=== PATIENT | female | born 1960 | race Caucasian/White ===

== ENCOUNTER 2020-08-29 08:47 | Outpatient (RCR) | payer OTHER, SELFPAY ==
--- NOTE | 2020-08-29 10:00 | PTOPEVAL ---
Thank you for referring Keiko Hsu to [facility].? The patient is scheduled to be seen for therapy? ____x/week for ___ weeks. Please review, sign, date and return this plan of care DOMINIQUE. I agree with and certify that the following plan of care is medically necessary. Referring Physician Date Admitting Provider: Attending Provider: ANGY PAN Referring Provider: JacquelinePT Outpatient Evaluation Start: 08/29/20 08:46 Freq: Status: Active Protocol: Document 08/29/20 08:47 ACR (Rec: 08/29/20 09:58 ACR [id number]) Therapy Assessment Status Assessment Status Assessment Status Evaluation Evaluation Information Problem Diagnosis R TKA Onset 08/22/20 Additional Evaluation Detail LEFS= 91% functionally disabled Subjective Information Patient states she underwent a Query Text:As Reported By Patient/ R TKA and everything went Family fine, but she was sick for 4 days. She is feeling better now and does not think it is from her hydrocodone. She states she did cortisone shots for 2 years that started to become less effective so she got the knee replacement. She states that getting on and off the toilet or in a chair is difficult. She has difficulty with walking/standing for prolonged periods of time. She states that it is waking her up at night. Patient is not driving at this time. Patient states she has been doing ankle pumps and walking at home. Patient states she is getting her other knee replaced in 6 weeks. Patient states her goal for therapy is to be pain free in 2 weeks. 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
--- NOTE | 2020-09-06 10:31 | PCPTNOTE ---
On 09/06/20, the student, [Vanda Maria, SPT], provided care and completed TextHub documentation on this patient. I have reviewed the student's documentation and agree with the findings.
--- NOTE | 2020-10-16 12:52 | PTOPEVAL ---
Thank you for referring Keiko Hsu to [facility].? The patient is scheduled to be seen for therapy? ____x/week for ___ weeks. Please review, sign, date and return this plan of care DOMINIQUE. I agree with and certify that the following plan of care is medically necessary. Referring Physician Date Admitting Provider: Attending Provider: ANGY PAN Referring Provider: JacquelinePT Outpatient Evaluation Start: 08/29/20 08:46 Freq: Status: Active Protocol: Document 10/16/20 09:03 ACR (Rec: 10/16/20 09:59 [facility] [id number]) Therapy Assessment Status Assessment Status Assessment Status Evaluation Evaluation Information Problem Diagnosis L TKA Onset 10/10/20 Subjective Information Patient states that she got Query Text:As Reported By Patient/ her L TKA on 10/10/20 and Family things went well. She states that this one was a bit more sore than the last one. She states she feels pretty tired, but it has only been a week. She states she has been doing her exercises, but the heel slides are the worst. Pain Assessment Timing of Pain Assessment Timing of Pain Assessment Assessment Pain Scale Pain Scale Used Numeric (1 - 10) Self Report Pain Assessment Left Knee(s) Reported Pain Level 4 Greatest Pain Intensity 6 Pain Score Pain Score 4: Self Report Interventions Used Interventions Used By Clinicians Activity or ADL's,Exercise Lower Extremity Range of Motion Knee Range of Motion Right Knee Flexion Range of Motion - Active 121 Knee Extension Range of Motion - Active -3 Query Text: Left Knee Flexion Range of Motion - Active 88 Knee Extension Range of Motion - Active -6 Query Text: Lower Extremity Muscle Strength Testing Knee Strength Right Knee Flexion Strength 4+ Good + Knee Extension Strength 4+ Good + Left Knee Flexion Strength 3+ Fair + Knee Extension Strength 3+ Fair + Palpation Assessment Palpation Palpation Patient has a surgical bandage along the incision of the L knee with excessive bruising along the thigh and down into the knee. Medial knee joint line circumference: L- 44 cm, R- 39 cm Gait Assessment Gait Assessment Additional Ambulation Comments Patient ambulates into the clinic with FWW, s
--- NOTE | 2020-11-27 12:00 | PTOPEVAL ---
Thank you for referring Keiko Hsu to [facility].? The patient is scheduled to be seen for therapy? ____x/week for ___ weeks. Please review, sign, date and return this plan of care DOMINIQUE. I agree with and certify that the following plan of care is medically necessary. 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 She states that she feels like it is overextending at times and there is a slight pain, but otherwise has no pain. Patient reports that at time she feels that her hips are a bit off when walking long distances. Pain Assessment Timing of Pain Assessment Timing of Pain Assessment Pre-Treatment Pain Scale Pain Scale Used Numeric (1 - 10) Self Report Pain Assessment Left Knee(s) Reported Pain Level 0 Greatest Pain Intensity 1 Pain Score Pain Score 0: Self Report Interventions Used Interventions Used By Clinicians Activity or ADL's,Exercise Lower Extremity Range of Motion Knee Range of Motion Left Knee Flexion Range of Motion - Active 128 Knee Extension Range of Motion - Active -1 Query Text: Lower Extremity Muscle Strength Testing Knee Strength Right Knee Flexion Strength 5 Normal Knee Extension Strength 5 Normal Left Knee Flexion Strength 5 Normal Knee Extension Strength 5 Normal Palpation Assessment Palpation Palpation medial joint line swelling: R- 39 cm, L - 40cm Gait Assessment Gait Assessment Additional Ambulation Comments Patient ambulates into the clinic with proper gait mechanics with little to no knee flexion with stance phase , no antalgia, and only a slight B hip drop. General Ex
== END 2020-11-27 14:33 | disposition home or self-care (01) ==
LOC: CHSPT 08:47
DX: Z47.1 Aftercare following joint replacement surgery (principal); Z96.651 Presence of right artificial knee joint
CPT/HCPCS: 97016; 97110; 97161; 97164; 97530

== ENCOUNTER 2024-05-28 10:57 | Outpatient (CLI) | payer OTHER, SELFPAY ==
[2024-05-28 11:22] LABS: Basophils Absolute Auto 0.04 K/mm3 (0.00-0.10); Basophils Percent Auto 0.5 % (0.0-1.0); Eosinophils Absolute Auto 0.19 K/mm3 (0.02-0.50); Eosinophils Percent Auto 2.5 % (1.0-6.0); Hematocrit 41.2 % (35.0-49.0); Hemoglobin 13.5 g/dL (12.0-15.0); Immature Granulocyte Absolute 0.01 K/mm3 (0.00-0.00); Immature Granulocyte Percent A 0.1 % (0.0-0.0); Lymphocytes Absolute Auto 1.52 K/mm3 (1.10-4.50); Mean Corpuscular HGB Conc 32.8 g/dL (32-36); Mean Corpuscular Hemoglobin 30.2 pg (27.0-31.0); Mean Corpuscular Volume 92.2 fL (78.0-102.0); Mean Platelet Volume 9.7 fl (9.2-11.8); Monocytes Absolute Auto 0.66 K/mm3 (0.10-0.90); Monocytes Percent Auto 8.7 % (2.0-11.0); Neutrophils Absolute Auto 5.18 K/mm3 (1.70-7.20); Neutrophils Percent Auto 68.2 % (50.0-70.0); Platelet Count Result 270 K/mm3 (150-420); Red Blood Count 4.47 M/mm3 (4.20-5.40); Red Cell Distribution Width 12.8 % (11.6-14.4); White Blood Count 7.6 K/mm3 (4.8-10.8)
--- OUTSIDE RECORDS SUMMARY | 2024-05-28 12:00 | XMS_ITS ---
Author Organization Unknown Address [address] [place] [phone] Phone Care Team Providers Care Turbine Inspector Name Role Phone PREMA MARSHALL Attending Unavailable Immunization Immunization Date Status Additional Notes Code Code System Influenza, MDCK, quadrivalen t, PF 12/08/2019 Completed 171 CVX COVID-19, mRNA, LNP-S, PF, 1 00 mcg/0.5mL dose or 50 mcg/0.25mL dose 06/13/2020 Completed 207 CVX COVID-19, mRNA, LNP-S, PF, 1 00 mcg/0.5mL dose or 50 mcg/0.25mL dose 07/11/2020 Completed 207 CVX Social History Type Status Start Date End Date Code Code Syst em Sex Female Hospital Discharge Instructions Should you have any questions prior to discharge, please contact a member of your healthcare team. If you have left the hospital and have any questions, please contact your primary care physician. Reason For Referral No Data Found Plan of Treatment No Data Found Encounters Encounter Diagnosis Start Date Code Code Sys tem Dyspnea 08/01/2023 [id number] SNOMED-CT Personal Care Team Section Performer Name Performer Role Active Date Inactive ROLANDO Reyes PCP - Primary care physician 2023-07-15
--- OUTSIDE RECORDS SUMMARY | 2024-05-28 12:00 | XMS_ITS | Clinical Summary ---
Author Organization [facility] Medical Office Building B Address [address] [place] [address] Care Team Providers Care Cement Loader Name Role Phone Kale Dumas Primary Care Provider [phone] Allergies Active Allergy Reactions Criticality Noted Date Comments Metoclopramide Other (See comments),Hives,Nausea only High 08/14/2020 Reaction: FLUSHING SKIN, , Tamsulosin Hives,Nausea only High 07/30/2018 Medications multivit-min/fe rrous fumarate (MULTI VITAMIN ORAL)Indication s:Thrive Vitamin - Take 1 tablet daily. Take by mouth Active naproxen (NAPROSYN) 500 mg tablet Take 1 tablet (500 mg total) by mouth 2 (two) times a day as needed for pain 60 tablet 5 12/02/2019 Active celecoxib (CeleBREX) 200 mg capsule Take 1 capsule (200 mg total) by mouth 2 (two) times a day 84 capsule 08/18/2020 Active aspirin (Ecotrin) 325 mg enteric coated tablet Take 1 tablet (325 mg total) by mouth daily 42 tablet 08/18/2020 Active scopolamine 1 mg over 3 days patch [address] 1 patch on the skin every third day 4 patch 2 08/25/2020 Active traMADoL (ULTRAM) 50 mg tablet Take 1 tablets every 6 hours as needed for pain. 30 tablet 08/25/2020 Active ascorbic acid (ascorbic acid) 500 mg tablet,chewable Take 500 mg by mouth daily 10/10/2020 Active ascorbic acid 500 mg tablet Take 500 mg by mouth daily 10/11/2020 Active cyclobenzaprine (FLEXERIL) 10 mg tablet Take by mouth 3 (three) times a day as needed 10/23/2020 Active Active Problems Problem Noted Date Diagnosed Date Bilateral primary osteoarthritis of knee 020 Primary osteoarthritis of both knees 07/29/2018 Kidney stone 07/03/2018 Overview (07/03/2018): Added automatically from request for surgery Surgical History Surgery Date Site/Laterality Comments APPENDECTOMY KNEE SURGERY Medical History Medical History Date Comments Osteoarthritis Kidney stone Family History Medical History Relation Name Comments No Known Problems Brother No Known Problems Daughter No Known Problems Father No Known Problems Mother No Known Problems Sister No Known Problems Son Relation Name Status Comments Brother Daughter Father Mother Sister Son Social History Tobacco Use Types Packs/Day Years Used Date Smoking Tobacco: Every Day Cigarettes 0.5 20 Smokeless Tobacco: Never Tobacco Cessation:Ready to Q uit: Yes; Counseling Given: Yes Alcohol Use Standard Drinks/Week Comments Yes 0 (1 standard drink = 0.6 oz pur e alcohol) occassional Comments No Sex and Gender Information Value Date Recorded Sex Assigned at Not on file Legal Sex Female 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 Gender Identity Not on file Sexual Orientation Not on file Obstetrics History Last Filed Vital Signs Vital Sign Reading Time Taken Comments Blood Pressure 119/86 11/28/2020 10:50 AM CDT Pulse 86 11/28/2020 10:50 AM CDT Temperature 36.3 C (97.3 F) 06/08/2020 9:20 AM CDT Respiratory Rate 14 07/07/2018 4:40 PM CDT Oxygen Saturation 100% 07/07/2018 4:40 PM CDT Inhaled Oxygen Concentration - - Weight 79.4 kg (175 lb) 11/28/2020 10:50 AM CDT Height 162.6 cm (5' 4 ) 11/28/2020 10:50 AM CDT Body Mass Index 30.04 11/28/2020 10:50 AM CDT Plan of Treatment Not on file Insurance [facility] CHOICE PLUS [facility] CHOICE PLUS [employer] COMPENSATION GENERIC Care Teams Cement Loader Relationship Specialty Start Date End Date Kale Dumas PA [address] [place] [address] PCP - General 07/17/06
--- OUTSIDE RECORDS SUMMARY | 2024-05-28 12:00 | XMS_ITS | Encounter Summary ---
Author Organization [facility] Address [address] [place] [address] Phone Care Team Providers Care Director Of Online Education Name Role Phone Kale Dumas Primary Care Provider [phone] Encounter Details Date Type Department Care Team (Late st Contact Info) Description 10/04/2020 Transcribe Orders [facility] Preop/Pacu II [address] [place] [id number] Herbert Stewart MD [address] [place] [address], [address] [place] [address] Pre-op testing (Primary Dx) Social History Tobacco Use Types Packs/Day Years Used Date Smoking Tobacco: Former Cigarettes 0.5 31.8 1 989 - 01/2020 Smokeless Tobacco: Never Alcohol Use Standard Drinks/Week Comments Not Currently 0 (1 standard drink = 0.6 oz pur e alcohol) Comments Unknown Sex and Gender Information Value Date Recorded Sex Assigned at Not on file Legal Sex Female 11:12 PM CDT Gender Identity Not on file Sexual Orientation Not on file COVID-19 Exposure Response Date Recorded In the last month, have you been in contact with someone who was confirmed or suspected to have Coronavirus / COVID-19? No / Unsure 10/07/2020 7:54 AM CDT documented as of this encounter Plan of Treatment Not on file documented as of this encounter Results * TYPE & SCREEN (CROSSMATCH CONVERTIBLE) (10/07/2020 8:22 AM CDT) ABO TYPING A 10/07/2020 10:[address] [facility] RH Positive 10/07/2020 10:[address] [facility] ABSC Negative 10/07/2020 10:[address] [facility] Blood Venipuncture / Unknown 10/07/2020 8:22 AM CDT 10/07/2020 8:35 AM CDT us Herbert Stewart MD BLOOD BANK ORDERABLES Edited R esult - Final [facility] [address] [place] [address] documented in this encounter Visit Diagnoses Diagnosis Pre-op testing- Primary Preoperative examination, unspecified documented in this encounter Care Teams Director Of Online Education Relationship Specialty Start Date End Date Kale Dumas, PAC [address] [place] [id number] PCP - General Physician Cmm Technician 04/08/18 documented as of this encounter
--- OUTSIDE RECORDS SUMMARY | 2024-05-28 12:00 | XMS_ITS | Encounter Summary ---
Author Organization [facility] Address [address] [place] [address] Phone Care Team Providers Care Photo Print Specialist Name Role Phone Kale Dumas Primary Care Provider [phone] Encounter Details Date Type Department Care Team (Late st Contact Info) Description 08/08/2020 Transcribe Orders [facility] Admitting [address] [place] [address] Herbert Stewart MD [address] [facility], [address] [place] [address] Pre-op testing (Primary Dx) Social History Tobacco Use Types Packs/Day Years Used Date Smoking Tobacco: Never Assessed Comments Unknown Sex and Gender Information Value Date Recorded Sex Assigned at Not on file Legal Sex Female 11:12 PM CDT Gender Identity Not on file Sexual Orientation Not on file COVID-19 Exposure Response Date Recorded In the last month, have you been in contact with someone who was confirmed or suspected to have Coronavirus / COVID-19? No / Unsure 08/08/2020 11:11 AM CDT documented as of this encounter Plan of Treatment Not on file documented as of this encounter Visit Diagnoses Diagnosis Pre-op testing- Primary Preoperative examination, unspecified documented in this encounter Care Teams Photo Print Specialist Relationship Specialty Start Date End Date Kale Dumas PAC [address] [place] [address] PCP - General Physician Hydroelectric Powerplant Supervisor 04/08/18 documented as of this encounter
--- OUTSIDE RECORDS SUMMARY | 2024-05-28 12:00 | XMS_ITS | Referral Summary ---
Author Organization [facility] Medical Office Building B Address [address] [place] [address] Care Team Providers Care Adjunct Professor Of [employer] 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 History Relationship Specialty Start Date End Date Kale Dumas PA [address] [place] [address] [facility] - General 07/17/06
--- OUTSIDE RECORDS SUMMARY | 2024-05-28 12:00 | XMS_ITS | Clinical Summary ---
Author Organization [facility] Address [address] [place] [address] Phone Care Team Providers Care Ibm Bpm Architect Name Role Phone Kale Dumas Primary Care Provider [phone] Allergies Active Allergy Reactions Criticality Noted Date Comments Metoclopramide Hives,Nausea High 08/14/2020 Tamsulosin Hives,Nausea High 08/14/2020 Medications ELDERBERRY PO Take 50 mg by mouth daily. Active aspirin 325 MG Tablet Take 1 Tablet by mouth daily. 42 Tablet 1 Active ferrous sulfate 325 (65 Fe) MG Tablet Take 1 Tablet by mouth daily. 30 Tablet 1 Active ascorbic acid 500 MG Tablet Take 1 Tablet by mouth daily. 30 Tablet 1 Active ondansetron (ZOFRAN-ODT) 4 MG TABLET DISPERSIBLE Take 1 Tablet by mouth every 8 hours as needed for Nausea - 1st line. 20 Tablet 1 Active oxyCODONE-acetamino phen (PERCOCET) 5-325 MG TabletIndications:P rimary osteoarthritis of left knee Take 1-2 Tablets by mouth every 4 hours as needed for Moderate or more severe pain. 60 Tablet 1 Active celecoxib (CeleBREX) 200 MG Capsule Take 1 Capsule by mouth 2 times daily. 84 Capsule 1 Active senna (senna) 8.6 MG Tablet Take 2 Tablets by mouth daily. 30 Tablet 1 Active Polyethylene Glycol 3350 (MIRALAX PO) Take 17 g by mouth as needed. Active Active Problems No known active problems Immunizations Immunization Administration Dates Next Due Covid-19, Mrna, Lnp-s, PF, 1 00 mcg/0.5 mL Dose (Moderna) 07/11/2020,06/13/2020 Family History Medical History Relation Name Comments Cancer Father SKIN Heart Disease Father Hypertension Father Arthritis Mother Hypertension Mother Relation Name Status Comments Father Alive Mother Alive Social History Tobacco Use Types Packs/Day Years Used Date Smoking Tobacco: Former Cigarettes 0.5 31.8 1 98 - 01/2020 Smokeless Tobacco: Never Alcohol Use [...] Sign Reading Time Taken Comments Blood Pressure 138/63 10/10/2020 1:00 PM CDT Pulse 78 10/10/2020 1:00 PM CDT Temperature 37 C (98.6 F) 10/10/2020 1:00 PM CDT Respiratory Rate 16 10/10/2020 1:00 PM CDT Oxygen Saturation 97% 10/10/2020 1:00 PM CDT Inhaled Oxygen Concentration - - Weight 78 kg (172 lb) 10/10/2020 5:58 AM CDT Height 162.6 cm (5' 4 ) 10/10/2020 5:58 AM CDT Body Mass Index 29.52 10/10/2020 5:58 AM CDT Plan of Treatment Health Maintenance Due Date Last Done Comments Hepatitis C Virus (HCV) Screening 1962 Mammogram 1962 TdaP Immunization 1962 Pap Smear 1983 Cervical Cancer Screening (CCS) 1992 HPV/Cotest 1992 Colonoscopy 2007 Colorectal Cancer Screening 2007 Cologuard 2012 Immunochemical Fecal Occult Blood 2012 Pneumococcal Immunization (5 0+ years) (1 of 1 - PCV) 2012 Zoster Immunization (1 of 2) 2012 Influenza Immunization (#1) 2023 12/08/2019 SARS-COV-2 Immunization (3 - 2023- season) 2023 07/11/2020, 06/13/2020 Respiratory Syncytial Virus (RSV) Immunization (Adult) (1 - 1-dose 75+ series) 2037 Hepatitis B Immunization Aged Out No longer eligible based on patient's age to complete this topic Meningococcal Immunization (ACWY) Aged Out No longer eligible b ased on patient's age to complete this topic Rotavirus Immunization Aged Out No lo nger eligible based on patient's age to complete this topic Medical Devices Implanted Type Area Front End Developer Designer Device Identifier Shelf Expiration Date Model / Serial / Lot Cement Bone Smartset Gentamicin High Viscosity 40gm - [id number] Implanted:Qty: 2 on 08/22/2020 [facility] IMPLANT Right: Knee [employer] 04/02/2021 [id number] / [id number] / [id number] Component Fem 5 Narrow Knee Right Post Stab Cmnt Attune - [id number] Implanted:Qty: 1 on 08/22/2020 by Herbert [facility] at [facility] IMPLANT Right: Knee [employer] 07/31/2030 [id number] / [id number] / [id number] Insert Tib 5 8mm Knee Post Stab Fix Bearing Attune - [id number] Implanted:Qty: 1 on 08/22/2020 by Herbert [facility] at [facility] IMPLANT Right: Knee [employer] 12/01/2023 [id number] / [id number] / [id number] Cement Bone Smartset Gentamicin High Viscosity 40gm - [id number] Implanted:Qty: 1 on 10/10/2020 by Herbert Stewart MD at [facility] IMPLANT Left: Knee [employer] 04/02/2021 [id number] / [id number] / [id number] Cement Bone Smartset Gentamicin High Viscosity 40gm - [id number] Implanted:Qty: 1 on 10/10/2020 by Herbert Stewart MD at [facility] IMPLANT Left: Knee [employer] 04/02/2022 [id number] / [id number] / [id number] Component Fem 4 Knee Left Post Stab Cmnt Attune - [id number] Implanted:Qty: 1 on 10/10/2020 by Herbert Stewart MD at [facility] IMPLANT Left: Knee [employer] 08/30/2030 [id number] / [id number] / [id number] Insert Tib 4 7mm Knee Post Stab Fix Bearing Attune - [id number] Implanted:Qty: 1 on 10/10/2020 by Herbert Stewart MD at [facility] IMPLANT Left: Knee [employer] 04/02/2025 [id number] / [id number] / [id number] Tibial Base Fixed Bearing Implanted:Qty: 1 on 08/22/2020 by Herbert Stewart MD at [facility] Right: Knee [employer] 05/31/2030 [id number] / [id number] / [id number] Depuy Attune Knee System Tibial Base Fixed Bearing Implanted:Qty: 1 on 10/10/2020 by Herbert Stewart MD at [facility] Left: Knee [employer] 05/31/2030 [id number] / [id number] / [id number] Insurance [employer] Care Teams Ibm Bpm Architect Relationship Specialty Start Date End Date Kale Dumas PAC [address] [place] [id number] PCP - General Physician Top Collar Maker 04/08/18
--- OUTSIDE RECORDS SUMMARY | 2024-05-28 12:00 | XMS_ITS | Clinical Summary ---
Author Organization [facility] Address [facility] [place] [address] Care Team Providers Care Gericare Aide Name Role Phone Kale Dumas Primary Care Provider [phone] Allergies No known active allergies Medications omeprazole (PRILOSEC) 20 MG capsule Take 1 capsule (20 mg total) by mouth daily. Active Social History Tobacco Use Types Packs/Day Years Used Date Smoking Tobacco: Former Cigarettes Tobacco Cessation:Counseling Given: No Alcohol Use Standard Drinks/Week Comments Not Currently 0 (1 standard drink = 0.6 oz pur e alcohol) Comments Unknown Sex and Gender Information Value Date Recorded Sex Assigned at Not on file Legal Sex Female 10:43 AM CDT Gender Identity Not on file Sexual Orientation Not on file Last Filed Vital Signs Vital Sign Reading Time Taken Comments Blood Pressure 122/62 06/26/2023 2:00 PM CDT Pulse 58 06/26/2023 2:00 PM CDT Temperature 36.8 C (98.2 F) 06/26/2023 10:54 AM CDT Respiratory Rate 15 06/26/2023 2:00 PM CDT Oxygen Saturation 99% 06/26/2023 2:00 PM CDT Inhaled Oxygen Concentration - - Weight 84.4 kg (186 lb) 06/26/2023 10:54 AM CDT Height 162.6 cm (5' 4 ) 06/26/2023 10:54 AM CDT Body Mass Index 31.93 06/26/2023 10:54 AM CDT Plan of Treatment Health Maintenance Due Date Last Done Comments Cervical Cancer Screening Pedro awad Smear (Age 30 to 64) Every 3 Years 1962 Colorectal Cancer Screening Colonoscopy (10 Years) 1962 Annual Physical 1965 Hepatitis C 1980 DTaP, Tdap and Td Vaccines ( 1 - Tdap) 1981 Cervical Cancer Screening Pa p with HPV Testing (Age 30 to 64) Every 5 Years 1992 Cervical Cancer Screening wi th HPV 1992 Mammogram Screening 2002 Zoster Vaccines (1 of 2) 2012 COVID-19 Vaccine (3 - 2023-2 5 season) 2023 07/11/2020, 06/13/2020 Influenza Adult (#1) 2023 12/08/2019 RSV Immunization or 60+ Years (1 - 1-dose 75+ series) 2037 Meningococcal B Vaccine Aged Out No l onger eligible based on patient's age to complete this topic Meningococcal Vaccine Aged Out No feliz sis eligible based on patient's age to complete this topic Pneumococcal Vaccine: Pediatrics (0 to 5 Years) and At-Risk Patients (6 to 64 Years) Aged Out No longer eligible b ased on patient's age to complete this topic RSV Immunizations Under 20 Months Aged Out No longer eligible b ased on patient's age to complete this topic Insurance [employer] Care Teams Gericare Aide Relationship Specialty Start Date End Date Kale Dumas PA [address] [place] [address] PCP - General PHYSICIAN LIBERAL ARTS DEAN 06/26/23
--- OUTSIDE RECORDS SUMMARY | 2024-05-28 12:01 | XMS_ITS ---
Author Organization Unknown Address [address] [place] [address] [phone] Phone Care Team Providers Care Sound Recording Technician Name Role Phone IVAN CHANEL TREATING ENGINEER Attending Unavailable PREMA MARSHALL Primary Unavailable Immunization Immunization Date Status Additional Notes Code Code System Influenza, MDCK, quadrivalen t, PF 12/08/2019 Completed 171 CVX COVID-19, mRNA, LNP-S, PF, 1 00 mcg/0.5mL dose or 50 mcg/0.25mL dose 06/13/2020 Completed 207 CVX COVID-19, mRNA, LNP-S, PF, 1 00 mcg/0.5mL dose or 50 mcg/0.25mL dose 07/11/2020 Completed 207 CVX Results DIG 3D CORBIN SCREENING BILATER AL - Completed: 12/26/2023 11:41 LOINC: See Scanned Image Attachment for Report Dictated By: Trans Initials: BG Trans Date: 12/30/23 14:36 <<REPDIST>> Social History Type Status Start Date End [...] Diagnosis Start Date Code Code Sys tem Screening mammography 12/26/2023 [id number] SNOMED -CT Personal Care Team Section Performer Name Performer Role Active Date Inactive ROLANDO Reyes PCP - Primary care physician 2023-07-15 Imaging Narrative Notes [facility] 12/30/2023 14:[address] [address] RADIOLOGY REPORT Patient Number: [id number] Patient Name: KAMILLA JAIN Type: O/P MR Number: [id number] : 1960 Age: 63 Sex: F Room #: Admit Date: 12/26/23 Discharge Date 12/26/23 Ordering Physician: IVAN CHANEL NP Family Physician: PREMA THOMAS Second Physician: X-Ray Number : [id number] DIG 3D CORBIN SCREENING BILATERA [id number] COMPLETE:12/26/23 11:41 KSE [id number] (REASONS-DIG 3D CORBIN SCREENING BILATERAL: SCREENING See Scanned Image Attachment for Report Dictated By: Wenceslao Initials: Trans Date: 12/30/23 14:36 <<REPDIST>>
[2024-05-28 14:41] LABS: Alanine Aminotransferase 53 U/L (14-59); Albumin Level 4.1 g/dL (3.4-5.0); Alkaline Phosphatase 89 U/L (46-116); Anion Gap 9 mmol/L (4-12); Aspartate Amino Transferase 26 U/L (15-37); Bilirubin,Total 0.4 mg/dL (0.00-1.00); Blood Urea Nitrogen 14 mg/dL (7-18); Calcium 9.5 mg/dL (8.5-10.1); Carbon Dioxide 29 mmol/L (21-32); Chloride 102 mmol/L (98-108); Cholesterol 238 mg/dL (0-200); Estimated Glomerular Filt Rate > 60; Glucose 76 mg/dL (70-99); HDL Direct 56 mg/dL (40-60); LDL Cholesterol Calculated 149 mg/dL (<130); Osmolality Calculated 289 mOsm/kg (285-295); Potassium 4.6 mmol/L (3.5-5.1); Sodium 140 mmol/L (136-145); Total Protein 7.8 g/dL (6.4-8.2); Triglycerides 164 mg/dL (0-150)
[2024-05-28 14:42] LABS: Thyroid Stimulating Hormone Reflex 1.41 u/IU/mL (0.36-3.74)
== END 2024-05-28 10:58 | disposition home or self-care (01) ==
LOC: CHSLAB 10:58
PROVIDERS: PCP Family Medicine; Visit Provider Family Medicine
DX: Z00.00 Encounter for general adult medical examination without abnormal findings (principal); E03.9 Hypothyroidism, unspecified
CPT/HCPCS: 36415; 80053; 80061; 84443; 85025

== ENCOUNTER 2024-06-11 12:43 | Outpatient (CLI) | payer OTHER, SELFPAY ==
--- NOTE | ~2024-06-11 | CT_ITS ---
CT Scan of the Chest without Contrast: Clinical Indication: Lung cancer screening, nicotine dependence Technique: Contiguous sections were acquired throughout the chest without intravenous contrast. Dose reduction technique was used on this scan by utilizing automated exposure control and iterative recon struction technique. The dose-length product (DLP) was 141.61 mGy-cm. Findings: There is no evidence of any significant mediastinal, hilar or axillary lymphadenopathy. The mediastin al soft tissues appear normal. There is no evidence of pleural or pericardial effusion. The lungs are clear. Probable minimal lingular atelectasis. Images through the upper abdomen reveal no abnormalities. Impression: Lung RADS 1: Negative. 12 month follow-up screening CT advised. Reviewed, dictated and finalized at location . Impression: Lung RADS 1: Negative. 12 month follow-up screening CT advised.
--- OUTSIDE RECORDS SUMMARY | 2024-06-11 12:47 | XMS_ITS | Data Portability ---
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 Plan of Treatment Reminders Order Date Submit Date Provider Last Modified By Organization Details Last Modified Time Details Appointments None recorded. Lab cytology report, thin prep, smear or scraping, cervical or vaginal 2023 024 [facility] [facility], [address] [facility], [facility], [place], [address], 4 10:16:35 bacterial vaginosis panel, vaginal 2023 024 [facility], [address] [facility], [facility], [place], [address], 4 15:16:39 urinalysis , dipstick 2023 024 [email or web address] In-Office Order, Internal Use Only DO Not Attach Compendium DO Not Attach Compendium, Do Not Delete/merge, [id number] 11:03:59 culture, urine 2023 024 [facility] [address] [facility], [place], [address], 4 17:09:38 noninvasiv e colorectal cancer DNA + occult blood screening, QL, stool 2023 024 [facility] (Cologuard Orders Only), [address], [address], [place], [address], 4 10:20:36 urinalysis , dipstick 2018 019 [email or web address] In-Office Order, Internal Use Only DO Not Attach Compendium DO Not Attach Compendium, Do Not Delete/merge, [id number] 19:37:42 Referral None recorded. Procedures None recorded. Surgeries None recorded. Imaging MAMMO, screening, bilateral 2023 024 [facility] (Radiology), [address] [place], [address], 4 09:52:21 exercise stress test 2023 024 [facility] - Radiology Scheduling, [address] [place], [address], 4 10:01:02 Medication Orders Women's 50 Plus Multivitam in 400 mcg-500 mg calcium-20 mcg tablet [address] [facility]/Pharmacy #[id number], [address] [place], [address], 4 11:04:08 triamcinol one acetonide 0.1 % topical ointment [address] [facility]/Pharmacy #[id number], [address] [place], [address], 4 11:19:55 Patient TargetsNo targets recorded. Patient Instructions Encounter Date Encounter Id Patient Instructions Last Modified By Organization Details Last Modified Time 07/01/2018 [id number] blood in the urine: care instructions stephanieanney Not available 07/01/2018 18:49:38 back care and preventing injuries: care instructions [email or web address] Not available 07/01/2018 18:49:38 go to ER jnanney Not available 2018 18:49:38 08/08/2020 [id number] body mass index: care instructions jnanney Not available 08/08/2020 10:21:28 learning about healthy weight Not available 08/08/2020 10:21:27 07/03/2023 [id number] A healthy lifestyle: care instructions Not available 07/03/2023 15:46:26 08/21/2023 [id number] A healthy lifestyle: care instructions Not available 08/21/2023 16:12:55 10/27/2023 [id number] A healthy lifestyle: care instructions [email or web address] Not available 10/27/2023 11:03:57 Your women's health annual exam today was unremarkable. Continue to practice breast self awareness like we discussed. Come back to the office with any breast changes, nipple discharge, change to your menstrual cycle, or with complaints of unusual odorous discharge. Otherwise, come back in 1 year for your next well woman annual exam. Do NOT douche as it disturbs the natural balance of bacteria in the vagina and can cause infection. Avoid scented soaps or lotions. Use a basic unscented soap for only the outer skin around your vagina. Wear cotton underwear, avoid thongs, avoid spandex, leggings and wear panty liners daily. You can try probiotics. Use a condom with EVERY sexual encounter to minimize your risk for sexually transmitted infection and unplanned . 1. Start taking a multivitamin, calcium and vitamin D3 supplements daily to keep your bones healthy. 2. Exercise and keep a healthy diet to minimize risk for stroke, heart attack and osteoporosis. 3. Use a once a day vaginal moisturizer (like Replens) if you have bothersome dryness. If dryness continues to be a problem, make an appointment to see us to discuss other options. Keep taking your multivitamins. Your bones get weaker after menopause, and you need to take your calcium and vitamin D3, which are multivitamins, to make sure your bones stay strong. Regular exercise, like walking, is very good to keep bones healthy. Try exercising for 30 minutes 5 times a week. Try having 2-3 servings of low fat dairy every day. Lubrication can help make penetrative intercourse more comfortable. There are 3 types of lube: Water-based (examples are KY jelly, Astroglide): inexpensive, can buy over the counter, often gets sticky and needs to be reapplied. Oil-based (examples olive oil, coconut oil): inexpensive, can stain sheets, do not use with condoms. Silicone-based (examples Uber Lube, Pjur): more expensive, a little goes a long way, does not have scents or stain sheets. [email or web address] Not available 10/27/2023 10:07:14 Reason for Referral None Reported. Results Created Date Observation Date Name Description Value Unit Range Abnormal Flag Note LastModifiedBy Organization Detail LastModifiedTime 06/30/19 19 06/29/2018 urina lysis , dipst ick Leukocytes Trace Not Available In-Offi ce Order Internal Use Only DO Not Attach Compendium DO Not Attach Compendium, Do Not Delete/merge, 06/29/2018 15:11:52 06/30/19 19 06/29/2018 urina lysis , dipst ick Nitrite positi ve Not Available In-Office Order Internal Use Only DO Not Attach Compendium DO Not Attach Compendium, Do Not Delete/merge, 06/29/2018 15:11:52 06/30/19 19 06/29/2018 urina lysis , dipst ick Urobilinogen .2 Not Available In-Of fice Order Internal Use Only DO Not Attach Compendium DO Not Attach Compendium, Do Not Delete/merge, 06/29/2018 15:11:52 06/30/19 19 06/29/2018 urina lysis , dipst ick Protein Negati ve Not Available In-Office Order Internal Use Only DO Not Attach Compendium DO Not Attach Compendium, Do Not Delete/merge, 06/29/2018 15:11:52 06/30/1906/29/2018 urina lysis , dipst ick pH 5.0 Not Available In-Office Order Internal Use Only DO Not Attach Compendium DO Not Attach Compendium, Do Not Delete/merge, 06/29/2018 15:11:52 06/30/19 19 06/29/2018 urina lysis , dipst ick Blood Non-He molyze d: Trace Not Available In-Office Order Internal Use Only DO Not Attach Compendium DO Not Attach Compendium, Do Not Delete/merge, 06/29/2018 15:11:52 06/30/19 19 06/29/2018 urina lysis , dipst ick Specific [place] 1.005 Not Available In-Off ice Order Internal Use Only DO Not Attach Compendium DO Not Attach Compendium, Do Not Delete/merge, 06/29/2018 15:11:52 06/30/19 19 06/29/2018 urina lysis , dipst ick Ketone Negati ve Not Available In-Office Order Internal Use Only DO Not Attach Compendium DO Not Attach Compendium, Do Not Delete/merge, 06/29/2018 15:11:52 06/30/19 19 06/29/2018 urina lysis , dipst ick Bilirubin Negati ve Not Available In-Office Order Internal Use Only DO Not Attach Compendium DO Not Attach Compendium, Do Not Delete/merge, 06/29/2018 15:11:52 06/30/19 19 06/29/2018 urina lysis , dipst ick Glucose Negati ve Not Available In-Office Order Internal Use Only DO Not Attach Compendium DO Not Attach Compendium, Do Not Delete/merge, 06/29/2018 15:11:52 06/30/1906/29/2018 urina lysis , dipst ick Appearance Clear Not Available In-Offi ce Order Internal Use Only DO Not Attach Compendium DO Not Attach Compendium, Do Not Delete/merge, 06/29/2018 15:11:52 06/30/19 19 06/29/2018 urina lysis , dipst ick Color [place] Not Available In-Office Order Internal Use Only DO Not Attach Compendium DO Not Attach Compendium, Do Not Delete/merge, 06/29/2018 15:11:52 07/02/19 19 07/01/2018 urina lysis , dipst ick Leukocytes Trace Not Available In-Offi ce Order Internal Use Only DO Not Attach Compendium DO Not Attach Compendium, Do Not Delete/merge, 07/01/2018 18:24:38 07/02/19 19 07/01/2018 urina lysis , dipst ick Nitrite negati ve Not Available In-Office Order Internal Use Only DO Not Attach Compendium DO Not Attach Compendium, Do Not Delete/merge, 07/01/2018 18:24:38 07/02/19 19 07/01/2018 urina lysis , dipst ick Urobilinogen .2 Not Available In-Of fice Order Internal Use Only DO Not Attach Compendium DO Not Attach Compendium, Do Not Delete/merge, 07/01/2018 18:24:38 07/02/19 19 07/01/2018 urina lysis , dipst ick Protein Negati ve Not Available In-Office Order Internal Use Only DO Not Attach Compendium DO Not Attach Compendium, Do Not Delete/merge, 07/01/2018 18:24:38 07/02/1907/01/2018 urina lysis , dipst ick pH 5.0 Not Available In-Office Order Internal Use Only DO Not Attach Compendium DO Not Attach Compendium, Do Not Delete/merge, 07/01/2018 18:24:38 07/02/19 19 07/01/2018 urina lysis , dipst ick Blood Modera te Not Available In-Office Order Internal Use Only DO Not Attach Compendium DO Not Attach Compendium, Do Not Delete/merge, 07/01/2018 18:24:38 07/02/1907/01/2018 urina lysis , dipst ick Specific [place] 1.015 Not Available In-Off ice Order Internal Use Only DO Not Attach Compendium DO Not Attach Compendium, Do Not Delete/merge, 07/01/2018 18:24:38 07/02/19 19 07/01/2018 urina lysis , dipst ick Ketone Negati ve Not Available In-Office Order Internal Use Only DO Not Attach Compendium DO Not Attach Compendium, Do Not Delete/merge, 07/01/2018 18:24:38 07/02/19 19 07/01/2018 urina lysis , dipst ick Bilirubin Negati ve Not Available In-Office Order Internal Use Only DO Not Attach Compendium DO Not Attach Compendium, Do Not Delete/merge, 07/01/2018 18:24:38 07/02/1907/01/2018 urina lysis , dipst ick Glucose Negati ve Not Available In-Office Order Internal Use Only DO Not Attach Compendium DO Not Attach Compendium, Do Not Delete/merge, [id number] 07/01/2018 18:24:38 07/02/19 19 07/01/2018 urina lysis , dipst ick Appearance Slight ly Cloudy Not Available In-Office Order Internal Use Only DO Not Attach Compendium DO Not Attach Compendium, Do Not Delete/merge, [id number] 07/01/2018 18:24:38 07/02/19 19 07/01/2018 urina lysis , dipst ick Color Yellow Not Available In-Office Order Internal Use Only DO Not Attach Compendium DO Not Attach Compendium, Do Not Delete/merge, [id number] 07/01/2018 18:24:38 06/26/19 24 06/26/2023 Urina lysis compl ete panel - Urine color of urine STRAW COLOR (U) STRAW 06/25 12:02 PM CDT [facility] Not Available Not Available 05/31/2024 11:15:17 06/26/19 24 06/26/2023 Urina lysis compl ete panel - Urine clarity of urine CLEAR TRANS PAREN CY CLEAR 06/25 12:02 PM CDT [facility] Not Available Not Available 05/31/2024 11:15:17 06/26/19 24 06/26/2023 Urina lysis compl ete panel - Urine specific gravity of urine 1.01 low: 1high: 1.025 SPECI FIC GRAVI TY (U) 1.010 1.000 - 1.025 06/25 12:02 PM CDT [facility] Not Available Not Available 05/31/2024 11:15:17 06/26/19 24 06/26/2023 Urina lysis compl ete panel - Urine pH of urine 6.5 low: 5high: 8 U PH 6.5 5.0 - 8.0 06/25 12:02 PM CDT [facility] Not Available Not Available 05/31/2024 11:15:17 06/26/19 24 06/26/2023 Urina lysis compl ete panel - Urine leukocyte esterase [presence] in urine by test strip NEGATI VE text: negati ve LEUKO CYTES (U) NEGAT INDIRA NEGAT INDIRA 06/25 12:[address] [facility] Not Available Not Available 05/31/2024 11:15:17 06/26/19 24 06/26/2023 Urina lysis compl ete panel - Urine nitrite [presence] in urine by test strip NEGATI VE text: negati ve NITRI BRIAN NEGAT INDIRA NEGAT INDIRA 06/25 12:[address] [facility] Not Available Not Available 05/31/2024 11:15:17 06/26/19 24 06/26/2023 Urina lysis compl ete panel - Urine protein [presence] in urine by automated test strip NEGATI VE text: negati ve PROTE IN RANDO M (U) NEGAT INDIRA NEGAT INDIRA 06/25 12:[address] [facility] Not Available Not Available 05/31/2024 11:15:17 06/26/19 24 06/26/2023 Urina lysis compl ete panel - Urine glucose [presence] in urine by automated test strip NEGATI VE text: negati ve GLUCO SE (U) NEGAT INDIRA NEGAT INDIRA 06/25 12:[address] [facility] Not Available Not Available 05/31/2024 11:15:17 06/26/19 24 06/26/2023 Urina lysis compl ete panel - Urine ketones [presence] in urine by automated test strip NEGATI VE text: negati ve KETON ES (U) NEGAT INDIRA NEGAT INDIRA 06/25 12:[address] [facility] Not Available Not Available 05/31/2024 11:15:17 06/26/19 24 06/26/2023 Urina lysis compl ete panel - Urine urobilinogen [units/volum e] in urine by test strip 0.2 text: <1.0 eu/dL UROBI LINOG EN 0.2 <1.0 EU/DL 06/25 12:[address] [facility] Not Available Not Available 05/31/2024 11:15:17 06/26/19 24 06/26/2023 Urina lysis compl ete panel - Urine bilirubin.to crystal [presence] in urine by automated test strip NEGATI VE text: negati ve BILIR UBIN (U) NEGAT INDIRA NEGAT INDIRA 06/25 12:02 PM CDT [facility] Not Available Not Available 05/31/2024 11:15:17 06/26/19 24 06/26/2023 Urina lysis compl ete panel - Urine erythrocytes [#/volume] in urine by automated test strip TRACE text: negati ve abnormal BLOOD (U) TRACE (A) NEGAT INDIRA 06/25 12:02 PM CDT [facility] Not Available Not Available 05/31/2024 11:15:17 06/26/19 24 06/26/2023 Urina lysis compl ete panel - Urine leukocytes [#/area] in urine sediment by microscopy high power field NONE SEEN text: 0 - 5 /hpf abnormal WBC/H PF NONE SEEN (A) 0 - 5 /HPF 06/25 12:02 PM T [facility] Not Available Not Available 05/31/2024 11:15:17 06/26/19 24 06/26/2023 Urina lysis compl ete panel - Urine interpretati on and review of laboratory results Abnorm al Not Available Not Available 11:15:17 06/26/19 24 06/26/2023 Compr ehens indira metab olic 1999 panel - Serum or Plasm a sodium [moles/volum e] in serum or plasma 140 text: 136 - 145 mmol/L SODIU M S/P/B 140 136 - 145 MMOL/ L 06/25 11:41 AM CDT [facility] Not Available Not Available 05/31/2024 11:15:17 06/26/19 24 06/26/2023 Compr ehens indira metab olic 1999 panel - Serum or Plasm a potassium [moles/volum e] in serum or plasma 4.1 text: 3.5 - 5.1 mmol/L POTAS SIUM S/P/B 4.1 3.5 - 5.1 MMOL/ L 06/25 11:41 [facility] Not Available Not Available 05/31/2024 11:15:17 06/26/19 24 06/26/2023 Compr ehens indira metab olic 2000 panel - Serum or Plasm a chloride [moles/volum e] in serum or plasma 102 text: 98 - 107 mmol/L CHLOR MOISES S/P/B 102 98 - 107 MMOL/ L 06/25 11:[address] [facility] Not Available Not Available 05/31/2024 11:15:17 06/26/19 24 06/26/2023 Compr ehens indira metab olic 1999 panel - Serum or Plasm a carbon dioxide, total [moles/volum e] in serum or plasma 26.4 text: 21.0 - 32.0 mmol/L CO2 26.4 21.0 - 32.0 MMOL/ L 06/25 11:[address] [facility] Not Available Not Available 05/31/2024 11:15:17 06/26/19 24 06/26/2023 Compr ehens indira metab olic 1999 panel - Serum or Plasm a glucose [mass/volume ] in serum or plasma 89 text: 70 - 99 mg/dL GLUCO SE 89 70 - 99 MG/DL 06/25 11:41 AM [facility] Not Available Not Available 05/31/2024 11:15:17 06/26/19 24 06/26/2023 Compr ehens indira metab olic 1999 panel - Serum or Plasm a urea nitrogen [mass/volume ] in serum or plasma 17 text: 6 - 24 mg/dL BUN 17 6 - 24 MG/DL 06/25 11:[address] [facility] Not Available Not Available 05/31/2024 11:15:17 06/26/19 24 06/26/2023 Compr ehens indira metab olic 2000 panel - Serum or Plasm a creatinine [mass/volume ] in serum or plasma 0.85 text: 0.55 - 1.02 mg/dL CREAT ININE S/P/B 0.85 0.55 - 1.02 MG/DL 06/25 11:41 AM [facility] Not Available Not Available 05/31/2024 11:15:17 06/26/19 24 06/26/2023 Compr ehens indira metab olic 1999 panel - Serum or Plasm a calcium [mass/volume ] in serum or plasma 8.7 text: 8.4 - 10.5 mg/dL CALCI UM S/P/B 8.7 8.4 - 10.5 MG/DL 06/25 11:41 AM CDT [facility] Not Available Not Available 05/31/2024 11:15:17 06/26/19 24 06/26/2023 Compr ehens indira metab olic 1999 panel - Serum or Plasm a bilirubin.to crystal [mass/volume ] in serum or plasma 0.3 text: 0.2 - 1.0 mg/dL BILIR UBIN TOTAL S/P/B 0.3 0.2 - 1.0 MG/DL 06/25 11:41 AM CDT [facility] Not Available Not Available 05/31/2024 11:15:17 06/26/19 24 06/26/2023 Compr ehens indira metab olic 2000 panel - Serum or Plasm a alkaline phosphatase [enzymatic activity/vol ume] in serum or plasma 65 U/L low: 50U/Lh igh: 130U/L ALKAL INE PHOSP HATAS E S/P/B 65 50 - 130 U/L 06/25 11:41 AM CDT [facility] Not Available Not Available 05/31/2024 11:15:17 06/26/19 24 06/26/2023 Compr ehens indira metab olic 2000 panel - Serum or Plasm a aspartate aminotransfe rase [enzymatic activity/vol ume] in serum or plasma 20 U/L low: 15U/Lh igh: 37U/L AST 20 15 - 37 U/L 06/25 11:41 AM CDT [facility] Not Available Not Available 05/31/2024 11:15:17 06/26/19 24 06/26/2023 Compr ehens indira metab olic 1999 panel - Serum or Plasm a alanine aminotransfe rase [enzymatic activity/vol ume] in serum or plasma 28 U/L low: 14U/Lh igh: 59U/L ALT 28 14 - 59 U/L 06/25 11:41 AM [facility] Not Available Not Available 05/31/2024 11:15:17 06/26/19 24 06/26/2023 Compr ehens indira metab olic 1999 panel - Serum or Plasm a protein [mass/volume ] in serum or plasma 7.4 text: 6.4 - 8.2 g/dL TOTAL PROTE IN S/P/B 7.4 6.4 - 8.2 G/DL 06/25 11:[address] [facility] Not Available Not Available 05/31/2024 11:15:17 06/26/19 24 06/26/2023 Compr ehens indira metab olic 1999 panel - Serum or Plasm a albumin [mass/volume ] in serum or plasma 3.8 text: 3.4 - 5.0 g/dL ALBUM IN S/P/B 3.8 3.4 - 5.0 G/DL 06/25 11:[address] [facility] Not Available Not Available 05/31/2024 11:15:17 06/26/19 24 06/26/2023 Compr ehens indira metab olic 1999 panel - Serum or Plasm a anion gap in serum or plasma by calculation 11.6 text: 5.0 - 15.0 mmol/L ANION GAP 11.6 5.0 - 15.0 MMOL/ L 06/25 11:[address] [facility] Not Available Not Available 05/31/2024 11:15:17 06/26/19 24 06/26/2023 Compr ehens indira metab olic 2000 panel - Serum or Plasm a osmolality of serum or plasma by calculated by sum of electrolytes 291 text: mOsm/k g OSMOL ALITY (CALC ) 291 MOSM/ KG 06/25 11:[address] [facility] Not Available Not Available 05/31/2024 11:15:17 06/26/19 24 06/26/2023 Compr ehens indira metab olic 2000 panel - Serum or Plasm a glomerular filtration rate [volume rate/area] in serum, plasma or blood by creatinine-b ased formula (CKD-epi 2020)/1.73 sq M 78 text: >89 mL/min /1.73 M2 low GFR ESTIM ATE 78 (L) >89 ML/VA N/1.7 3 M2 06/25 11:41 AM CDT [facility] Not Available Not Available 05/31/2024 11:15:17 06/26/19 24 06/26/2023 Compr ehens indira metab olic 2000 panel - Serum or Plasm a GFR notes GFR REFERE NCES: GFR NOTES GFR REFER ENCES : 06/25 11:41 AM CDT [facility] Not Available Not Available 05/31/2024 11:15:17 06/26/19 24 06/26/2023 Compr ehens indira metab olic 2000 panel - Serum or Plasm a interpretati on and review of laboratory results Abnorm al Not Available Not Available 11:15:17 06/26/19 24 06/26/2023 Fibri n D-dim er FEU [Mass /volu me] in Plate let poor plasm a fibrin D-dimer feu [mass/volume ] in platelet poor plasma 493 NG{fe u}/mL low: 0NG{fe u}/mLh igh: 500NG{ feu}/m L D-DIM ER 493 0 - 500 ng{FE U}/mL 06/25 11:29 AM CDT [facility] Not Available Not Available 05/31/2024 11:15:17 06/26/19 24 06/26/2023 CBC W Auto Diffe renti al panel - Blood leukocytes [#/volume] in blood by automated count 6.26 text: 4.00 - 10.80 x10'3/ uL WBC 6.26 4.00 - 10.80 x10'3 /uL 06/25 11:19 AM CDT [facility] Not Available Not Available 05/31/2024 11:15:17 06/26/19 24 06/26/2023 CBC W Auto Diffe renti al panel - Blood erythrocytes [#/volume] in blood by automated count 4.23 text: 4.10 - 5.40 x10'6/ uL RBC 4.23 4.10 - 5.40 x10'6 /uL 06/25 11:19 AM CDT [facility] Not Available Not Available 05/31/2024 11:15:17 06/26/19 24 06/26/2023 CBC W Auto Diffe renti al panel - Blood hemoglobin [mass/volume ] in blood 12.9 text: 12.0 - 16.0 g/dL HGB 12.9 12.0 - 16.0 G/DL 06/25 11:19 AM CDT [facility] Not Available Not Available 05/31/2024 11:15:17 06/26/19 24 06/26/2023 CBC W Auto Diffe renti al panel - Blood hematocrit [volume fraction] of blood by calculation 39 % low: 36%hig h: 47% HCT 39.0 36.0 - 47.0 % 06/25 11:19 AM CDT [facility] Not Available Not Available 05/31/2024 11:15:17 06/26/19 24 06/26/2023 CBC W Auto Diffe renti al panel - Blood MCV [entitic mean volume] in red blood cells 92.2 text: 78.0 - 100.0 fL MCV 92.2 78.0 - 100.0 FL 06/25 11:19 AM CDT [facility] Not Available Not Available 05/31/2024 11:15:17 06/26/19 24 06/26/2023 CBC W Auto Diffe renti al panel - Blood MCH [entitic mass] 30.5 pg low: 27pghi gh: 31pg MCH 30.5 27.0 - 31.0 PG 06/25 11:19 AM CD [facility] Not Available Not Available 05/31/2024 11:15:17 06/26/19 24 06/26/2023 CBC W Auto Diffe renti al panel - Blood MCHC [entitic mass/volume] in red blood cells 33.1 text: 33.0 - 36.0 g/dL MCHC 33.1 33.0 - 36.0 G/DL 06/25 11:19 AM CDT [facility] Not Available Not Available 05/31/2024 11:15:17 06/26/19 24 06/26/2023 CBC W Auto Diffe renti al panel - Blood RDW 12.6 % low: 11.5%h igh: 14.5% RDW 12.6 11.5 - 14.5 % 06/25 11:19 AM CDT [facility] Not Available Not Available 05/31/2024 11:15:17 06/26/19 24 06/26/2023 CBC W Auto Diffe renti al panel - Blood platelets [#/volume] in blood 264 text: 150 - 350 x10'3/ uL PLT 264 150 - 350 x10'3 /uL 06/25 11:19 AM CDT [facility] Not Available Not Available 05/31/2024 11:15:17 06/26/19 24 06/26/2023 CBC W Auto Diffe renti al panel - Blood platelet [entitic mean volume] in blood 10.1 text: 7.4 - 10.4 fL MPV 10.1 7.4 - 10.4 FL 06/25 11:19 AM CDT [facility] Not Available Not Available 05/31/2024 11:15:17 06/26/19 24 06/26/2023 CBC W Auto Diffe renti al panel - Blood service comment NORMAL REFERE NCE RANGE NOT ESTABL ISHED FOR THE PROPOR TIONAL LEUKOC YTE DIFFER ENTIAL . CBC COMME NT LESA L REFER ENCE RANGE NOT ESTAB LISHE D FOR THE PROPO RTION AL LEUKO CYTE DIFFE RENTI AL. 06/25 11:19 AM CDT [facility] Not Available Not Available 05/31/2024 11:15:17 06/26/19 24 06/26/2023 CBC W Auto Diffe renti al panel - Blood neutrophils/ leukocytes in blood by automated count 61.4 % NEUTR OPHIL S 61.4 % 06/25 11:19 AM CDT [facility] Not Available Not Available 05/31/2024 11:15:17 06/26/19 24 06/26/2023 CBC W Auto Diffe renti al panel - Blood lymphocytes/ leukocytes in blood by automated count 29.1 % LYMPH OCYTE S 29.1 % 06/25 11:19 AM CDT [facility] Not Available Not Available 05/31/2024 11:15:17 06/26/19 24 06/26/2023 CBC W Auto Diffe renti al panel - Blood monocytes/le ukocytes in blood by automated count 7.5 % MONOC YTES 7.5 % 06/25 11:19 AM CDT [facility] Not Available Not Available 05/31/2024 11:15:17 06/26/19 24 06/26/2023 CBC W Auto Diffe renti al panel - Blood eosinophils/ leukocytes in blood by automated count 1.4 % EOSIN OPHIL S 1.4 % 06/25 11:19 AM CDT [facility] Not Available Not Available 05/31/2024 11:15:17 06/26/19 24 06/26/2023 CBC W Auto Diffe renti al panel - Blood basophils/le ukocytes in blood by automated count 0.3 % BASOP HILS 0.3 % 06/25 11:19 AM CDT [facility] Not Available Not Available 05/31/2024 11:15:17 06/26/19 24 06/26/2023 CBC W Auto Diffe renti al panel - Blood immature granulocytes /leukocytes in blood by automated count 0.3 % IMMAT URE GRANS 0.3 % 06/25 11:19 AM CDT [facility] Not Available Not Available 05/31/2024 11:15:17 06/26/19 24 06/26/2023 CBC W Auto Diffe renti al panel - Blood nucleated erythrocytes [presence] in blood 0 % NRBC 0.0 % 06/25 11:19 AM [facility] Not Available Not Available 05/31/2024 11:15:17 06/26/19 24 06/26/2023 CBC W Auto Diffe renti al panel - Blood neutrophils [#/volume] in blood 3.84 text: 1.60 - 8.30 x10'3/ uL ABS. NEUTR OPHIL S 3.84 1.60 - 8.30 x10'3 /uL 06/25 11:19 AM CD[facility] Not Available Not Available 05/31/2024 11:15:17 06/26/19 24 06/26/2023 CBC W Auto Diffe renti al panel - Blood lymphocytes [#/volume] in blood 1.82 text: 0.80 - 4.70 x10'3/ uL ABS. LYMPH OCYTE S 1.82 0.80 - 4.70 x10'3 /uL 06/25 11:19 AM CDT [facility] Not Available Not Available 05/31/2024 11:15:17 06/26/19 24 06/26/2023 CBC W Auto Diffe renti al panel - Blood monocytes [#/volume] in blood 0.47 text: 0.00 - 1.50 x10'3/ uL ABS. MONOC YTES 0.47 0.00 - 1.50 x10'3 /uL 06/25 11:19 AM CDT [facility] Not Available Not Available 05/31/2024 11:15:17 06/26/19 24 06/26/2023 CBC W Auto Diffe renti al panel - Blood eosinophils [#/volume] in blood 0.09 text: 0.00 - 0.40 x10'3/ uL ABS. EOSIN OPHIL S 0.09 0.00 - 0.40 x10'3 /uL 06/25 11:19 [facility] Not Available Not Available 05/31/2024 11:15:17 06/26/19 24 06/26/2023 CBC W Auto Diffe renti al panel - Blood basophils [#/volume] in blood 0.02 text: 0.00 - 0.20 x10'3/ uL ABS. BASOP HILS 0.02 0.00 - 0.20 x10'3 /uL 06/25 11:19 AM CDT [facility] Not Available Not Available 05/31/2024 11:15:17 06/26/19 24 06/26/2023 CBC W Auto Diffe renti al panel - Blood immature granulocytes [#/volume] in blood 0.02 text: 0.00 - 0.03 x10'3/ uL ABS. IMMAT URE GRANU LOCYT ES 0.02 0.00 - 0.03 x10'3 /uL 06/25 11:19 AM CDT [facility] Not Available Not Available 05/31/2024 11:15:17 06/26/19 24 06/26/2023 CBC W Auto Diffe renti al panel - Blood nucleated erythrocytes [#/volume] in blood 0 text: 0.00 x10'3/ uL ABS. NUCLE ATED RBC'S 0.00 0.00 x10'3 /uL 06/25 11:19 AM CDT [facility] Not Available Not Available 05/31/2024 11:15:17 10/27/19 24 10/28/2023 NUSWA B BV AND SANTIAGO DA, MERCEDES atopobium vaginae LOW - 0 score Not Available [facility] ([facility]) [address] [place], [address], 10/28/2023 15:16:39 10/27/19 24 10/28/2023 NUSWA B BV AND SANTIAGO DA, MERCEDES bvab 2 LOW - 0 score Not Available [facility] ([facility]) [address] [place], [address], 10/28/2023 15:16:39 10/27/19 24 10/28/2023 NUSWA B BV AND SANTIAGO DA, MERCEDES megasphaera 1 LOW - 0 score Calcu late total score by silvia gomez the 3 indiv idual bacte rial vagin osis (BV) marke r score s toget her. Total score is inter prete d as follo ws: Total score 0-1: Indic ates the absen ce of BV. Total score 2: Indet ermin ate for BV. Addit ional clini jones data shoul d be evalu ated to estab hannah a diagn osis. Total score 3-6: Indic ates the prese nce of BV. Not Available [facility] ([facility]) [address] [place], [address], 10/28/2023 15:16:39 10/27/19 24 10/28/2023 NUSWA B BV AND SANTIAGO DA, MERCEDES casi albicans, MERCEDES NEGATI VE negati ve Not Available [facility] ([facility]) [address] [place], [address], 10/28/2023 15:16:39 10/27/19 24 10/28/2023 NUSWA B BV AND SANTIAGO DA, MERCEDES casi glabrata, MERCEDES NEGATI VE negati ve Not Available [facility] ([facility]) [address] [place], [address], 10/28/2023 15:16:39 10/27/19 24 10/29/2023 URINE CULTU RE, ROUTI NE urine culture, routine FINAL REPORT Not Available [facility] ([facility]) [address] [place], [address], 10/29/2023 17:09:38 10/27/19 24 10/29/2023 URINE CULTU RE, ROUTI NE result 1 COMMEN T Mixed uroge nital kenn 25,00 0-50, 000 colon y formi ng units per mL Not Available [facility] ([facility]) [address] [place], [address], 10/29/2023 17:09:38 10/27/19 24 10/28/2023 IGP, APTIM A HPV, RFX 16/18 ,45 HPV aptima NEGATI VE negati ve This nucle ic acid ampli ficat ion test detec ts fourt een high- risk HPV types (16,1 8,31, 33,35 ,39,4 5,51, 52,56 ,58,5 9,66, 68) witho ut diffe renti ation . Not Available [facility] ([facility]) [address] [facility], [place], [address], 10/30/2023 10:16:35 10/27/19 24 10/30/2023 IGP, APTIM A HPV, RFX 16/18 ,45 diagnosis: ADOLFO Hearn NEGAT INDIRA FOR INTRA EPITH ELIAL LESIO N OR CATRACHITA PINTO . Not Available [facility] ([facility]) [address] [facility], [place], [address], 10/30/2023 10:16:35 10/27/19 24 10/30/2023 IGP, APTIM A HPV, RFX 16/18 ,45 specimen adequacy: ADOLFO T Satis facto ry for evalu ation . No endoc ervic al compo nent is ident ified . Not Available [facility] ([facility]) [address] [facility], [place], [address], 10/30/2023 10:16:35 10/27/19 24 10/30/2023 IGP, APTIM A HPV, RFX 16/18 ,45 clinician provided ICD10: ADOLFO Hearn Z01.4 19 N89.8 R35.0 Not Available [facility] ([facility]) [address] [place], [address], 10/30/2023 10:16:35 10/27/19 24 10/30/2023 IGP, APTIM A HPV, RFX 16/18 ,45 performed by: Radha Tirado (ASCP ) Not Available [facility] ([facility]) [address] [place], [address], 10/30/2023 10:16:35 10/27/19 24 10/30/2023 IGP, APTIM A HPV, RFX 16/18 ,45 . . Not Available [facility] ([facility]) [address] [place], [address], 10/30/2023 10:16:35 10/27/19 24 10/30/2023 IGP, APTIM A HPV, RFX 16/18 ,45 note: COMMEN T The Pap smear is a scree mayela test desig goran to aid in the detec tion of lissa ligna nt and malig nant condi tions of the uteri ne cervi x. It is not a diagn ostic proce dure and shoul d not be used as the sole means of detec ting cervi jones cance r. Both false -posi tive and false -nega tive repor ts do occur . Not Available [facility] ([facility]) [address] [facility], [place], [address], 10/30/2023 10:16:35 10/27/19 24 10/30/2023 IGP, APTIM A HPV, RFX 16/18 ,45 test methodology: COMMEN T This liqui d based ThinP rep(R ) pap test was scree goran with the use of an image guide d syste m. Not Available [facility] ([facility]) [address] [facility], [place], [address], 10/30/2023 10:16:35 10/27/19 24 10/30/2023 IGP, APTIM A HPV, RFX 16/18 ,45 HPV genotype reflex COMMEN T Crite tess not met, HPV Genot ype not perfo rmed. Not Available [facility] ([facility]) [address] [place], [address], 10/30/2023 10:16:35 10/27/19 24 10/27/2023 urina lysis , dipst ick Leukocytes Trace Not Available In-Offi ce Order Internal Use Only DO Not Attach Compendium DO Not Attach Compendium, Do Not Delete/merge, 10/27/2023 10:50:46 10/27/19 24 10/27/2023 urina lysis , dipst ick Nitrite negati ve Not Available In-Office Order Internal Use Only DO Not Attach Compendium DO Not Attach Compendium, Do Not Delete/merge, 10/27/2023 10:50:46 10/27/19 24 10/27/2023 urina lysis , dipst ick Urobilinogen .2 Not Available In-Of fice Order Internal Use Only DO Not Attach Compendium DO Not Attach Compendium, Do Not Delete/merge, 10/27/2023 10:50:46 10/27/19 24 10/27/2023 urina lysis , dipst ick Protein Negati ve Not Available In-Office Order Internal Use Only DO Not Attach Compendium DO Not Attach Compendium, Do Not Delete/merge, 10/27/2023 10:50:46 10/27/19 24 10/27/2023 urina lysis , dipst ick pH 6.0 Not Available In-Office Order Internal Use Only DO Not Attach Compendium DO Not Attach Compendium, Do Not Delete/merge, 10/27/2023 10:50:46 10/27/19 24 10/27/2023 urina lysis , dipst ick Blood Negati ve Not Available In-Office Order Internal Use Only DO Not Attach Compendium DO Not Attach Compendium, Do Not Delete/merge, 10/27/2023 10:50:46 10/27/19 24 10/27/2023 urina lysis , dipst ick Specific [place] 1.010 Not Available In-Off ice Order Internal Use Only DO Not Attach Compendium DO Not Attach Compendium, Do Not Delete/merge, 10/27/2023 10:50:46 10/27/19 24 10/27/2023 urina lysis , dipst ick Ketone Negati ve Not Available In-Office Order Internal Use Only DO Not Attach Compendium DO Not Attach Compendium, Do Not Delete/merge, 10/27/2023 10:50:46 10/27/19 24 10/27/2023 urina lysis , dipst ick Bilirubin Negati ve Not Available In-Office Order Internal Use Only DO Not Attach Compendium DO Not Attach Compendium, Do Not Delete/merge, [id number] 10/27/2023 10:50:46 10/27/19 24 10/27/2023 urina lysis , dipst ick Glucose Negati ve Not Available In-Office Order Internal Use Only DO Not Attach Compendium DO Not Attach Compendium, Do Not Delete/merge, 10/27/2023 10:50:46 10/27/19 24 10/27/2023 urina lysis , dipst ick Appearance Clear Not Available In-Offi ce Order Internal Use Only DO Not Attach Compendium DO Not Attach Compendium, Do Not Delete/merge, [id number] 10/27/2023 10:50:46 10/27/19 24 10/27/2023 urina lysis , dipst ick Color Yellow Not Available In-Office Order Internal Use Only DO Not Attach Compendium DO Not Attach Compendium, Do Not Delete/merge, [id number] 10/27/2023 10:50:46 11/14/1911/14/2023 COLOG UARD cologuard result reportable NEGATI VE negati ve normal NEGAT INDIRA TEST RESUL T. A negat indira Colog uard resul t indic ates a low likel ihood that a color ectal cance r (CRC) or advan annetta adeno ma (arnulfo omato us polyp s with more advan annetta pre-m align ant featu res) is prese nt. The chanc e that a perso n with a negat indira Colog uard test has a color ectal cance r is less than 1 in 1500 (nega tive predi ctive value >99.9 %) or has an advan annetta adeno ma is less than 5.3% (nega tive predi ctive value 94.7% ). These data are based on a prosp ectiv e cross -sect ional study of 10,00 0 indiv idual s at [facility] risk for color ectal cance r who were scree goran with both Colog uard and colon oscop y. (Tatye domenico Kemp et al, N Engl J Med 2014; 370(1 4):12 86-12 97) The lesa l value (refe rence range ) for this assay is negat indira. COLOG UARD RE-SC REENI NG RECOM MENDA TION: Perio dic color ectal cance r scree mayela is an impor tant part of preve ntive healt hcare for asymp tomat ic indiv idual s at [facility] risk for color ectal cance r. Follo wing a negat indira Colog uard resul t, the Ameri can Cance r Socie ty and U.S. Multi -Soci ety Task Force scree mayela guide lines recom mend a Colog uard re-sc reeni ng inter saúl of 3 years . Refer ences : Ameri can Cance r Socie ty Guide line for Color ectal Cance r Scree mayela: https ://juan pablo w.can cer.o rg/ca ncer/ colon -rect al-ca ncer/ detec tion- diagn osis- stagi ng/ac s-rec ommen datio ns.ht ml.; Ray SUAREZ, Shruthi jaeger CR, Prashant FigueroaK, Color ectal Cance r Scree mayela: Recom menda tions for Physi cians and Patie nts from the U.S. Multi -Soci ety Task Force on Color ectal Cance r Scree mayela , Am Henry macarionttammy rolog y 2017; 112:1 016-1 030. TEST DESCR IPTIO N: [place] site algor ithmi c kate sis of stool DNA-b iomar kers with hemog lobin immun oassa y. Quant itati ve value s of indiv idual bioma rkers are not repor table and are not assoc iated with indiv idual bioma rker resul t refer ence range s. Colog uard is inten ded for color ectal cance r scree mayela of adult s of eithe r sex, 45 years or older , who are at [facility] for color ectal cance r (CRC) . Colog uard has been appro saulo for use by the U.S. FDA. The perfo rmanc e of Colog uard was estab lishe d in a cross secti onal study of [facility] adult s aged 50-84 . Colog uard perfo rmanc e in patie nts ages 45 to 49 years was estim ated by sub-g roup kate sis of near- age group s. Colon oscop ies perfo rmed for a posit indira resul t may find as the most clini rosetta signi fican t lesio n: color ectal cance r [4.0% ], advan annetta adeno ma (incl uding sessi le raphael kee polyp s great er than or equal to 1cm diame ter) [20%] or non- advan annetta adeno ma [31%] ; or no color ectal neopl eliel [45%] . These estim ates are deriv ed from a prosp ectiv e cross -sect ional scree mayela study of 0 indiv idual s at [facility] risk for color ectal cance r who were scree goran with both Colog uard and colon oscop y. (Mark Kemp et al, N Engl J Med 2014; 370(1 4):12 86-12 97.) Colog uard may produ ce a false negat indira or false posit indira resul t (no color ectal cance r or preca ncero us polyp prese nt at colon oscop y follo w up). A negat indira Colog uard test resul t does not guara ntee the absen ce of CRC or advan annetta adeno ma (pre- cance r). The curre nt Colog uard scree mayela inter saúl is every 3 years . (Amer ican Cance r Socie ty and U.S. Multi -Soci ety Task Force ). Colog uard perfo rmanc e data in a 0 patie nt pivot al study using colon oscop y as the refer ence metho d can be acces sed [facility] locat ion: www.e xactl abs.c om/re sults . Addit ional descr iptio n of the Colog uard test proce ss, warni ngs and preca ution s can be found at www.minerva mcgee.minerva om. Not Available [employer] (Cologuard Orders Only) [address], [place], [address], 11/19/2023 10:20:36 08/19/19 24 08/01/2023 exerc ise stres s test No observ ation record ed. [email or web address], [address], 08/19/2023 15:43:48 08/19/19 24 08/01/2023 exerc ise stres s test No observ ation record ed. [email or web address], [address], 08/19/2023 15:02:55 12/30/19 24 12/26/2023 MAMMO , scree mayela, bilat eral No observ ation record ed. [address], [address], 12/30/2023 16:17:05 12/30/1912/26/2023 MAMMO , scree mayela, bilat eral No observ ation record ed. [facility] (Radiology) [address] [place] [address], [address], 12/30/2023 16:16:55 Result Notes None recorded. Problems No Known Problems Procedures Surgical History Date Name Laterality Status Provider Name and Address Organization Details Recorded Time 09/01/19 20 Date of Last Mammogram completed Ruth Goss MA [place] - [facility] 08/08/2020 09:44:44 09/01/19 Date of Last Pap Smear completed Ruth Goss MA [place] - [facility] 08/08/2020 09:44:50 Appendectomy completed Mary Owens RN [place] - [facility] 01/18/2016 15:10:17 Imaging Results Imaging Date Name Status LastModified by [facility] Details LastModified Time 08/01/2023 exercise stress test completed [email or web address] [facility] [address] [place], [address], 08/19/2023 15:43:48 08/01/2023 exercise stress test completed [email or web address] [facility] [address] [place], [address], 08/19/2023 15:02:55 12/26/2023 MAMMO, screening, bilateral completed [facility] [address] [place], [address], 12/30/2023 16:17:05 12/26/2023 MAMMO, screening, bilateral completed [facility] (Radiology) [facility] [place][note 2[address] [place], [address], 12/30/2023 16:16:55 Procedure Notes None recorded. Medical Equipment None Reported. Allergies Allergen ID Allergen Name Allergen Category Reaction Reaction Severity Criticality Documentation Date Start Date Code Code System Note Provider Name and Address Organization Details Recorded Time 638079 metoclopr amide Not available other severe Not available 08/08/2020 6915 RxNorm Not Available Not Available Not Available No known drug allergies Medications Name Sig Start Date Stop Date Status Note LastModified by Organization Details LastModified Time celecoxib 200 mg capsule TAKE 1 CAPSULE BY MOUTH TWICE A DAY 07/02 completed Not Available Not Available Not Available cyclobenzap rine 10 mg tablet Take 1 tablet 3 times a day by oral route as needed for 30 days. 07/02 completed Not Available Not Available Not Available prednisone 10 mg tablet 02/28 completed Not Available Not Available Not Available aspirin 325 mg tablet TAKE 1 TABLET BY MOUTH EVERY DAY 08/20 completed Not Available Not Available Not Available hydrocodone 5 mg-acetamin ophen 325 mg tablet TAKE 1 2 TABLETS BY MOUTH EVERY 4 HOURS NEEDED FOR MODERATE OR MORE SEVERE PAIN 07/02 completed Not Available Not Available Not Available Keflex 500 mg capsule Take 1 capsule 3 times a day by oral route for 10 days. 04/08 completed Not Available Not Available Not Available ondansetron HCl 8 mg tablet TAKE 1 TABLET (8 MG TOTAL) BY MOUTH EVERY 8 (EIGHT) HOURS NEEDED FOR NAUSEA OR VOMITING 07/02 completed Not Available Not Available Not Available acetaminoph en 300 mg-codeine 30 mg tablet 02/28 completed Not Available Not Available Not Available ciprofloxac in 500 mg tablet Take 1 tablet every 12 hours by oral route for 10 days. 08/08 completed Not Available Not Available Not Available Tamiflu 75 mg capsule Take 1 capsule twice a day by oral route for 5 days. 04/08 completed Not Available Not Available Not Available tramadol 50 mg tablet TAKE 1 TABLET EVERY 6 HOURS NEEDED FOR PAIN. 07/02 completed Not Available Not Available Not Available Depo-Medrol 80 mg/mL suspension for injection Take 1 mL by injection route. 02/28 completed Not Available Not Available Not Available meloxicam 7.5 mg tablet 02/28 completed Not Available Not Available Not Available oxycodone-a cetaminophe n 5 mg-325 mg tablet TAKE 1 2 TABLETS BY MOUTH EVERY 4 HOURS NEEDED FOR MODERATE SEVERE PAIN 07/02 completed Not Available Not Available Not Available ascorbic acid (vitamin C) 500 mg tablet TAKE 1 TABLET BY MOUTH EVERY DAY 07/02 completed Not Available Not Available Not Available aspirin 325 mg tablet,gael yed release TAKE 1 TABLET BY MOUTH EVERY DAY 08/20 completed Not Available Not Available Not Available meclizine 25 mg tablet TAKE 1 TABLET BY MOUTH 2 TO 3 TIMES DAILY NEEDED FOR DIZZINESS FOR 7 DAYS 07/02 completed Not Available Not Available Not Available ferrous sulfate 325 mg (65 mg iron) tablet TAKE 1 TABLET BY MOUTH EVERY DAY 07/02 completed Not Available Not Available Not Available triamcinolo ne acetonide 0.1 % topical ointment APPLY THIN COAT TO AFFECTED AREA TWICE A DAY active Not Available Not Available No t Available aspirin 81 mg chewable tablet Chew 1 tablet every day by oral route. active Not Available Not Available No t Available scopolamine 1 mg over 3 days transdermal patch APPLY 1 PATCH TO SKIN EVERY 72 HOURS FOR 1 DOSE 07/02 completed Not Available Not Available Not Available naproxen 500 mg tablet TAKE 1 TABLET BY MOUTH TWICE A DAY NEEDED FOR PAIN 07/02 completed Not Available Not Available Not Available Senexon-S 8.6 mg-50 mg tablet TAKE 1 TABLET BY MOUTH 2 (TWO) TIMES A DAY NEEDED FOR CONSTIPAT ION 07/02 completed Not Available Not Available Not Available Women's 50 Plus Multivitami n 400 mcg-500 mg calcium-20 mcg tablet Take 1 tablet every day by oral route as directed for 30 days, for bone support. 2023 active Not Available Not Available Not Avai lable Vitals Date Recorded Body height Oxygen saturation Oxygen saturation in Arterial blood by Pulse oximetry Heart rate Provider Name and Address Organization Details Last Updated DateTime 07/01/2018 162.56 cm 97 % 97 % 70 /min Yamini Anton MA [facility] 07/01/2018 17:41:26 Date Recorded Body temperature Oxygen saturation Oxygen saturation in Arterial blood by Pulse oximetry Heart rate Body height Body mass index (BMI) Body weight Systolic blood pressure Diastolic blood pressure Provider Name and Address Organization Details Last Updated DateTime 1 97.3 [degF] 98 % 98 % 70 /min 157.48 cm 32 kg/m2 41983.6 6 g 110 mm[Hg] 70 mm[Hg] Ruth Goss MA [facility] 1 09:48:40 Date Recorded Body weight Body mass index (BMI) Body height Heart rate Oxygen saturation Oxygen saturation in Arterial blood by Pulse oximetry Systolic blood pressure Diastolic blood pressure Provider Name and Address Organization Details Last Updated DateTime 4 91348.9 6 g 34.6 kg/m2 157.48 cm 66 /min 97 % 97 % 132 mm[Hg] 76 mm[Hg] Earline Geller MA [facility] 4 15:11:45 Date Recorded Body height Body mass index (BMI) Body weight Oxygen saturation Oxygen saturation in Arterial blood by Pulse oximetry Heart rate Systolic blood pressure Diastolic blood pressure Provider Name and Address Organization Details Last Updated DateTime 4 157.48 cm 35.3 kg/m2 73936.3 3 g 97 % 97 % 77 /min 122 mm[Hg] 84 mm[Hg] Earline Geller MA [facility] 4 15:39:58 Date Recorded Body height Heart rate Body mass index (BMI) Body weight Systolic blood pressure Diastolic blood pressure Provider Name and Address Organization Details Last Updated DateTime 4 157.48 cm 74 /min 35.3 kg/m2 63572.3 3 g 108 mm[Hg] 82 mm[Hg] Earline Geller MA [facility] 4 10:44:46 Social History Question Answer Notes LastModified by Organizat ion Details LastModified Time Tobacco Smoking Status Former Smoker Ruth Goss MA null, [place] - [facility] 08/08/2020 09:45:22 What Is Your Level Of Alcohol Consumption? None Information not available 08/08/2020 What Is Your Level Of Caffeine Consumption? Moderate Information not available 08/08/2020 In The 14 Days Before Symptom Onset, Have You Had Close Contact With A Laboratory-confirm ed COVID-19 While That Case Was Ill? No Information n ot available 08/08/2020 In The 14 Days Before Symptom Onset, Have You Had Close Contact With A Person Who Is Under Investigation For COVID-19 While That Person Was Ill? No Information not available 08/08/2020 Have You Been To An Area Known To Be High Risk For COVID-19? No Information not available 08/08/2020 Are You Currently Employed? Yes Information not available 08/08/2020 What Type Of Diet Are You Following? 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 10/27/2023 [email or web address] Information not available 10/27/2023 What Is Your Relationship Status? Information not available 08/08/2020 Do You Have Smoke And Carbon Monoxide Detectors In Your Home? Yes Information not available 08/08/2020 Are You Passively Exposed To Smoke? No Information no t available 08/08/2020 How Much Tobacco Do You Smoke? 0.5 PPD Information not available 01/18/2016 Do You Feel Stressed (tense, Restless, Nervous, Or Anxious, Or Unable To Sleep At Night)? [id number] Information not available 08/08/2020 Do You Use Any Illicit Or Recreational Drugs? No Information not available 08/08/2020 Has Tobacco Cessation Counseling Been Provided? No Information not available 08/08/2020 How Many Years Have You Smoked Tobacco? 10 [email or web address] Information not available 01/18/2016 Do You Or Have You Ever Used Any Other Forms Of Tobacco Or Nicotine? No Information not available 08/08/2020 Sex: Unknown Functional Status Question Answer Note LastModified by Organization D etails LastModified Time Are you able to care for yourself? Yes Information n ot available 08/08/2020 Mental Status None recorded. Family History Relationship Description Onset Age of this Age Resolved Age Notes LastModified by Organization Details LastModified Time Father Diabetes mellitus Not available 2015 15:09:30 Father Hypertensive disorder Not available 2015 15:09:44 Mother Hypertensive disorder [email or web address] Not available 2015 15:09:44 Medical History Condition Response Coronary Artery Disease N Other N High Blood Pressure N Atrial Fibrillation N Kidney or Bladder Problems N Thyroid Problems N GI Problems N Depression N COPD N Blood Clots N Skin Problems N Anemia N Heart Attack (VA) N Anxiety Disorder N Diabetes N Muscle, Joint, or Bone Problems N Seizures/Epilepsy N Acid Reflux (GERD) N Cancer N Stroke N Asthma N Allergies N High Cholesterol N Hepatitis N Liver Disease N Headaches N Osteoporosis N Heart Failure N Gynecological History Statement/Question Response Date of Last Pap Smear 09/01/2019 Date of Last Mammogram 09/01/2019 Date of LMP 09/01/2015 Obstetrics History GPAL:G 4 P 4 0 0 4 Type Value Multiple Births 0 Full Term 4 Induced 0 Spontaneous 0 Premature 0 Living 4 Ectopics 0 Total 4 Immunizations Vaccine Type Date Status Note Provider Nam e and Address Organization Details Recorded Time COVID-19, mRNA, LNP-S, PF, 100 mcg/0.5mL dose or 50 mcg/0.25mL dose 06/13/2020 completed DARÍO LOVE NP Attn: Accounting,[address] [facility], [place], [address], [facility] 10/27/2023 11:36:13 COVID-19, mRNA, LNP-S, PF, 100 mcg/0.5mL dose or 50 mcg/0.25mL dose 07/11/2020 completed DARÍO LOVE NP Attn: Accounting,[address] [place], [address], [facility] 10/27/2023 11:36:13 Influenza, MDCK, quadrivalent, PF 12/08/2019 completed DARÍO LOVE NP Attn: Accounting,[address] [place], [address], [facility] 10/27/2023 11:36:13 Past Encounters Encounter ID Performer Location Encounter Start Date Encounter Closed Date Diagnosis/Indication Diagnosis SNOMED-CT Code Diagnosis ICD10 Code Diagnosis Note [id number] YOHANA Babcock [address] [place] [address] 01/18/2016 14:56:37 01/18/2016 16:16:34 Knee pain 49870049 M25.561 Osteoarthr itis of knee 539022131 M17.9 [id number] Kale Dumas PA-C [facility] [address] [place] [address] 02/28/2017 14:52:06 02/28/2017 16:18:23 Urinary tract infectious disease 94902454 N39.0 Dysuria 65388410 R30.0 [id number] Kale Dumas PA-C [facility] [address] [place] [address] 02/26/2018 10:39:50 02/26/2018 12:06:23 Screening for malignant neoplasm of breast 429439099 Z12.31 Screening for malignant neoplasm of colon 425711334 Z12.11 Adult heal th examination 177759891 Z00.00 Acute pharyngitis 415603 003 J02.8 [id number] YOHANA Babcock [facility] [address] [place] [address] 04/08/2018 09:54:25 04/08/2018 11:33:42 Pain in right knee 4364525391 44178 M25.561 Pain in left knee 046831 7653 60377 M25.217 [id number] YOHANA Babcock [facility] [address] [place] [address] 04/20/2018 16:46:51 04/20/2018 17:33:32 Osteoarthritis of knee 653349023 M17.0 [id number] Tracy Sharp MA [facility] [address] [place] [address] 06/29/2018 15:09:56 06/30/2018 11:02:33 Urinary tract infectious disease 64567407 N39.0 [id number] Kale Dumas PA-C [facility] [address] [place] [address] 07/01/2018 17:30:13 07/02/2018 15:28:57 Urinary tract infectious disease 48234916 N39.0 Microscopic hematuria 19 9830190 R31.21 Low back pain 858074736 M54.5 [id number] Kale Dumas PA-C [facility] [address] [place] [address] 08/08/2020 09:37:19 08/08/2020 12:20:57 Body mass index 30+ - obesity 380289226 Z68.32 Osteoarthr itis of right knee joint 7663452718 79666 M17.11 [id number] Kale Dumas PA-C [facility] [address] [place] [address] 07/03/2023 14:44:13 07/09/2023 13:20:04 Dyspnea on exertion 97217043 R06.09 Overweight 357139877 E66 .3 [id number] Kale Dumas PA-C [facility] [address] [place] [address] 08/21/2023 15:28:49 08/22/2023 12:35:59 Right upper quadrant pain 337123371 R10.11 Obesity 523468264 E66.8 [id number] DARÍO LOVE NP [facility] [address] [place] [address] 10/27/2023 09:38:39 10/29/2023 10:29:23 Gynecologic examination 68861499 Z01.419 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 Pap+ HPV cotesting done; pt has no pap history2. STI screening {{complete d declined *}}.3. Partner has {{condoms PAT patch ring proge stion only pill DMPA Nexplanon IUD BTL Va sectomy#}} 4. Discussed breast self awareness5 . Mammogram ordered per ACOG guidelines 6. Cologuard ordered7. 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 Screening mammography 24 134501 Z12.31 Unsure when last mammogram wasOrdered placed Screening for malignant neoplasm of colon 775516061 Z12.11 No HX of colon CA in familyColo guard ordered Menopause 767243910 Z78. 0 pt is post menopausal Discussed vaginal changes, moisturize rs and lubricatio nDiscussed returning to clinic with any vaginal bleedingRX sent for Multivitam in Obesity 713786396 E66.8 Increased frequency of urination 903962584 R35.0 UA is not indicative for UTItrace leukocytes Culture sent Vaginal irritation 97751 6004 N89.8 1. Vaginal swab obtained2. Discussed vaginal hygiene, preventive measures and probiotics .3. Pt is already on a probiotic daily4. Small open areas to entrance to introitus. 5. RX sent for triamcinol one ointment to help with healing. Health Concerns Section Related Observation LastModified by Organization Detai ls LastModified Time None Recorded Concern Status LastModified by Organization Details LastModified Time None Recorded Advance Directives Directive None Recorded Payers Encounter Date Sequence Insurance Name Policy Number Policy Castro Covered Member ID Castro Member ID Guarantor Name 07/01/2018 1 [facility] [id number] Keikoterese Schuleron [id number] [facility] 08/08/2020 1 [facility] [id number] Keiko Hsu [id number] [facility] 07/03/2023 1 [employer] [facility] [facility] [employer]ICER [facility] - OPEN ACCESS III (PPO) [id number] Keikoterese Schuleron [id number] Keiko Hsu 08/21/2023 1 [employer] [facility] [facility] - OPEN ACCESS III (PPO) [id number] Keiko Hsu [id number] Keiko Hsu 10/27/2023 1 [facility]IC[facility] - OPEN ACCESS III (PPO) [id number] Keiko Hsu [id number] Keiko Hsu Notes Date Note Type Note Provider Name and Address Organization Details Recorded Time 07/01/2018 text/html started cipro yesterday with urine symptoms. did drive yesterday . pain now worse. has had a kidney stone that did this before Kale Dumas PA-C Attn: Accounting, [address] [place], [address], [facility] 07/01/2018 18:50:49 08/08/2020 text/html Pt is a 60 year old female with a hx of osteoarthritis presenting to the clinic for surgery clearance. Pt states she has recently quit smoking, and has no acute complaints. She denies CP, SOB, GI Changes, or HAs. She is getting her right knee replaced on the . 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 Kale Dumas PA-C Attn: Accounting,[address] [place], [address], [facility] 07/03/2023 15:47:11 08/21/2023 text/html stress test was good...the issues have resolved since then...now wonders about gallbladder.... 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 Reports menopause at age 53. Denies any HRT. Has c/o vaginal irritation right at the entrance to the vagina. Has tried using lubrication in that area and it park. Also has c/o urinary frequency. Denies any breast changes/pain, fatigue/cold intolerance/hair loss/dry skin. Denies dyspareunia, pelvic pressure or bowel movement changes.Denies SOB/chest pain/dizziness. Denies any fever or chills. Denies any family history of breast, ovarian, endometrial or pancreatic cancer. LMP: age 53Last pap smear: unknownPap due: TodayLast Mammogram: unknownLast Cologuard: several years ago.Patient {{is* is not}} sexually active with a {{female male*}} partner. Patient has had 1 {{male* female}} partner in the past 46 years.Current contraception: partner has vasectomy DARÍO LOVE NP Attn: Accounting,[address] [place], [address], [facility] 10/27/2023 11:36:54 OBGyn Episode No OBEpisode recorded.
--- OUTSIDE RECORDS SUMMARY | 2024-06-11 12:47 | XMS_ITS | Encounter Summary ---
Author Organization [facility] Address [address] [place] [address] Phone Care Team Providers Care Pet Care Assistant Name Role Phone Kale Dumas Primary Care Provider Encounter Details Date Type Department Care Team (Late st Contact Info) Description 10/04/2020 Transcribe Orders [facility] Preop/Pacu II [address] [place] [address] Herbert Stewart MD [address] [place] [address], [address] [place] [address] Pre-op testing (Primary Dx) Social History Tobacco [...] ABO TYPING A 10/07/2020 10:56 AM CDT [facility] RH Positive 10/07/2020 10:56 AM CDT [facility] ABSC Negative 10/07/2020 10:56 AM CDT [facility] Blood Venipuncture / Unknown 10/07/2020 8:22 AM CDT 10/07/2020 8:35 AM CDT us Herbert Stewart MD BLOOD BANK ORDERABLES Ed ited Result - Final [facility] #[address] [place] [address] documented in this encounter Visit Diagnoses Diagnosis Pre-op testing- Primary Preoperative examination, unspecified documented in this encounter Care Teams Pet Care Assistant Relationship Specialty Start Date End Date Kale Dumas, PAC [address] [place] [address] PCP - General Physician Adventure Challenge Instructor 04/08/18 documented as of this encounter
--- OUTSIDE RECORDS SUMMARY | 2024-06-11 12:47 | XMS_ITS | Encounter Summary ---
Author Organization [facility] Address [address] [place] [address] Phone Care Team Providers Care Loom Fixer Helper Name Role Phone Kale Dumas Primary Care Provider [phone] Encounter Details Date Type Department Care Team (Late st Contact Info) Description 08/08/2020 Transcribe Orders [facility] Admitting 1 [place] [address] Herbert Stewart MD [address] [facility], [address] [place] [address] Pre-op testing (Primary Dx) Social History Tobacco [...] unspecified documented in this encounter Care Teams Loom Fixer Helper Relationship Specialty Start Date End Date Kale Dumas PAC [address] [place] [address] PCP - General Physician Human Resource Management Instructor 04/08/18 documented as of this encounter
--- OUTSIDE RECORDS SUMMARY | 2024-06-11 12:47 | XMS_ITS | Clinical Summary ---
Author Organization [facility] Address [address] [place] [address] Phone Care Team Providers Care Mapping Specialist Name Role Phone Kale Dumas Primary Care Provider [phone] Allergies Active Allergy Reactions Criticality Noted Date [...] this topic Medical Devices Implanted Type Area Steam Conditioner Filling Device Identifier Shelf Expiration Date Model / Serial / Lot Cement Bone Smartset Gentamicin High Viscosity 40gm - [id number] Implanted:Qty: 2 on 08/22/2020 by Herbert Stewart MD at [facility] IMPLANT Right: Knee [employer] 04/02/2021 [id number] / [id number] / [id number] Component Fem 5 Narrow Knee Right Post Stab Cmnt Attune - [id number] Implanted:Qty: 1 on 08/22/2020 by Herbert Stewart MD at [facility] IMPLANT Right: Knee [employer] 07/31/2030 [id number] / [id number] / [id number] Insert Tib 5 8mm Knee Post Stab Fix Bearing Attune - [id number] Implanted:Qty: 1 on 08/22/2020 by Herbert Stewart MD at [facility] IMPLANT Right: Knee [employer] 12/01/2023 [id number] / [id number] / [id number] Cement Bone Smartset Gentamicin High Viscosity 40gm - [id number] Implanted:Qty: 1 on 10/10/2020 by Herbert Stewart MD at [facility] IMPLANT Left: Knee [employer] 04/02/2021 [id number] / [id number] / [id number] Cement Bone Smartset Gentamicin High Viscosity 40gm - [id number] Implanted:Qty: 1 on 10/10/2020 by Herbert Stewart MD at [facility] IMPLANT Left: Knee [employer] 04/02/2022 [id number] / [id number] / [id number] Component Fem 4 Knee Left Post Stab Cmnt Attune - [id number] Implanted:Qty: 1 on 10/10/2020 by Herbert Stewart MD at [facility] IMPLANT Left: Knee [employer] 08/30/2030 [id number] / [id number] / [id number] Insert Tib 4 7mm Knee Post Stab Fix Bearing Attune - [id number] Implanted:Qty: 1 on 10/10/2020 by Herbert Stewart MD at [facility] IMPLANT Left: Knee [employer] 04/02/2025 [id number] / [id number] / [id number] Tibial Base Fixed Bearing Implanted:Qty: 1 on 08/22/2020 by Herbert Stewart MD at [facility] Right: Knee [employer] 05/31/2030 [id number] / [id number] / [id number] Depuy Attune Knee System Tibial Base Fixed Bearing Implanted:Qty: 1 on 10/10/2020 by Herbert Stewart MD at [facility] Left: Knee [employer] 05/31/2030 [id number] / [id number] / [id number] Insurance [employer] Care Teams Mapping Specialist Relationship Specialty Start Date End Date Kale Dumas PAC [address] [place] [address] PCP - General Physician On Site Nurse 04/08/18
--- OUTSIDE RECORDS SUMMARY | 2024-06-11 12:47 | XMS_ITS | Clinical Summary ---
Author Organization [facility] Address [facility] [place] [address] Care Team Providers Care Paunch Trimmer Name Role Phone Kale Dumas Primary Care Provider [phone] Allergies No known active allergies Medications omeprazole [...] - 2023-2 5 season) 2023 07/11/2020, 06/13/2020 RSV Immunization or 60+ Years (1 - [...] patient's age to complete this topic Insurance [employer] Care Teams Paunch Trimmer Relationship Specialty Start Date End Date Kale Dumas PA [address] [place] [address] PCP - General PHYSICIAN NEEDLE PUNCH MACHINE OPERATOR 06/26/23
--- OUTSIDE RECORDS SUMMARY | 2024-06-11 12:47 | XMS_ITS ---
Author Organization Unknown Address [address] [place] [phone] Phone Care Team Providers Care Wick Tender Name Role Phone PREMA MARSHALL Attending Unavailable [...] Date Code Code Sys tem Dyspnea 08/01/2023 708189204 SNOMED-CT Personal Care Team Section Performer Name Performer Role Active Date Inactive ROLANDO Reyes PCP - Primary care physician 2023-07-15
--- OUTSIDE RECORDS SUMMARY | 2024-06-11 12:48 | XMS_ITS ---
Author Organization Unknown Address [address] [place] [phone] Phone Care Team Providers Care Inspector Barrel Name Role Phone IVAN CHANEL OVEREDGE SEWER Attending Unavailable PREMA MARSHALL Primary Unavailable Immunization [...] Code Code Sys tem Screening mammography 12/26/2023 08697055 SNOMED -CT Personal Care Team Section Performer Name Performer Role Active Date Inactive ROLANDO Reyes PCP - Primary care physician 2023-07-15 Imaging Narrative Notes [facility] 12/30/2023 14:[address] [address] RADIOLOGY REPORT Patient Number: [id number] Patient Name: KAMILLA JAIN Type: O/P MR Number: [id number] : 1960 Age: 63 Sex: F Room #: Admit Date: 12/26/23 Discharge Date 12/26/23 Ordering Physician: IVAN CHANEL NP Family Physician: PREMA THOMAS Second Physician: X-Ray Number : [id number] DIG 3D CORBIN SCREENING BILATERA 07766 COMPLETE:12/26/23 11:41 KSE 92724 (REASONS-DIG 3D CORBIN SCREENING BILATERAL: SCREENING See Scanned Image Attachment for Report Dictated By: Wenceslao Initials: Trans Date: 12/30/23 14:36 <<REPDIST>>
== END 2024-06-11 12:44 | disposition home or self-care (01) ==
LOC: CHSIMG 12:44
PROVIDERS: PCP Family Medicine; Visit Provider Family Medicine
DX: Z12.2 Encounter for screening for malignant neoplasm of respiratory organs (principal); Z87.891 Personal history of nicotine dependence
CPT/HCPCS: 71271

== ENCOUNTER 2024-06-25 09:30 | Outpatient (CLI) | payer OTHER, SELFPAY ==
--- OUTSIDE RECORDS SUMMARY | 2024-06-25 09:41 | XMS_ITS | Encounter Summary ---
Author Organization [facility] Address [address] [place] [address] Phone Care Team Providers Care Manager Agricultural Name Role Phone Kael Dumas Primary Care Provider [phone] Encounter Details Date Type Department Care Team (Late st Contact Info) Description 08/08/2020 Transcribe Orders [facility] Admitting 1 [place] [address] Herbert Stewart MD [address] [facility], [address] [place] [address] Pre-op testing (Primary Dx) Social History Tobacco [...] unspecified documented in this encounter Care Teams Manager Agricultural Relationship Specialty Start Date End Date Kale Dumas PAC [address] [place] [address] PCP - General Physician Gas Plumbing Inspector 04/08/18 documented as of this encounter
--- OUTSIDE RECORDS SUMMARY | 2024-06-25 09:41 | XMS_ITS ---
Author Organization Unknown Address [address] [place] [phone] Phone Care Team Providers Care Sales Coordinator Name Role Phone PREMA MARSHALL Attending Unavailable [...] Date Code Code Sys tem Dyspnea 08/01/2023 087899423 SNOMED-CT Personal Care Team Section Performer Name Performer Role Active Date Inactive ROLANDO Reyes PCP - Primary care physician 2023-07-15
--- OUTSIDE RECORDS SUMMARY | 2024-06-25 09:41 | XMS_ITS | Encounter Summary ---
Author Organization [facility] Address [address] [place] [address] Phone Care Team Providers Care Manager Sustainability Name Role Phone Kale Dumas Primary Care Provider [phone] Encounter Details Date Type Department Care Team (Late st Contact Info) Description 10/04/2020 Transcribe Orders [facility] Preop/Pacu II [address] [place] [address] Herbert Stewart MD [address] [place] [address], [address] [place] [address] Pre-op testing (Primary Dx) Social History Tobacco [...] BANK ORDERABLES Ed ited Result - Final [facility]LO[facility] #[address] [place] [address] documented in this encounter Visit Diagnoses Diagnosis Pre-op testing- Primary Preoperative examination, unspecified documented in this encounter Care Teams Manager Sustainability Relationship Specialty Start Date End Date Kale Dumas, PAC [address] [place] [address] PCP - General Physician Sewage Disposal Worker 04/08/18 documented as of this encounter
--- OUTSIDE RECORDS SUMMARY | 2024-06-25 09:41 | XMS_ITS | Clinical Summary ---
Author Organization [facility] Address [address] [place] [address] Phone Care Team Providers Care Cigar Machine Feeder Name Role Phone Kale Dumas Primary Care Provider [phone] Allergies Active Allergy Reactions Criticality Noted Date [...] this topic Medical Devices Implanted Type Area Onyx Chip Terrazzo Worker Device Identifier Shelf Expiration Date Model / Serial / Lot Cement Bone Smartset Gentamicin High Viscosity 40gm - [id number] Implanted:Qty: 2 on 08/22/2020 by [facility] IMPLANT Right: Knee [employer] 04/02/2021 [id number] / [id number] / [id number] Component Fem 5 Narrow Knee Right Post Stab Cmnt Attune - [id number] Implanted:Qty: 1 on 08/22/2020 by Herbert [facility] MD at [facility] IMPLANT Right: Knee [employer] 07/31/2030 [id number] / [id number] / [id number] Insert Tib 5 8mm Knee Post Stab Fix Bearing Attune - [id number] Implanted:Qty: 1 on 08/22/2020 by Herbert Stewart MD at [facility] IMPLANT Right: Knee [employer] 12/01/2023 [id number] / [id number] / [id number] Cement Bone Smartset Gentamicin High Viscosity 40gm - [id number] Implanted:Qty: 1 on 10/10/2020 by Herbert Stewart MD at [facility] IMPLANT Left: Knee [employer] 04/02/2021 [id number] / [id number] / [id number] Cement Bone Smartset Gentamicin High Viscosity 40gm - [id number] Implanted:Qty: 1 on 10/10/2020 by Herbert Stewart MD at [facility] IMPLANT Left: Knee [employer] 04/02/2022 [id number] / [id number] / [id number] Component Fem 4 Knee Left Post Stab Cmnt Attune - [id number] Implanted:Qty: 1 on 10/10/2020 by Herbert Stewart MD at [facility] IMPLANT Left: Knee [employer] 08/30/2030 [id number] / [id number] / [id number] Insert Tib 4 7mm Knee Post Stab Fix Bearing Attune - [id number] Implanted:Qty: 1 on 10/10/2020 by Herbert Stewart MD at [facility] IMPLANT Left: Knee [employer] 04/02/2025 [id number] / [id number] / [id number] Tibial Base Fixed Bearing Implanted:Qty: 1 on 08/22/2020 by Herbert Stewart MD at [facility] Right: Knee [employer]uy 05/31/2030 [id number] / [id number] / [id number] Depuy Attune Knee System Tibial Base Fixed Bearing Implanted:Qty: 1 on 10/10/2020 by Herbert Stewart MD at [facility] Left: Knee [employer] 05/31/2030 1506-70-003 / [id number] / [id number] Insurance [employer] Care Teams Cigar Machine Feeder Relationship Specialty Start Date End Date Kale Dumas PAC [address] [place] [address] PCP - General Physician Director Of Group Counseling Program 04/08/18
--- OUTSIDE RECORDS SUMMARY | 2024-06-25 09:41 | XMS_ITS | Clinical Summary ---
Author Organization [facility] Address [facility] [place] [address] Care Team Providers Care Preschool Assistant Teacher Name Role Phone Kale Dumas Primary Care Provider [phone] Allergies No known active allergies Medications omeprazole [...] wi th HPV 1992 Mammogram Screening 2002 Pneumococcal Vaccine: 50+ Years (1 of 1 - PCV) 2012 Zoster Vaccines (1 of 2) 2012 COVID-19 [...] patient's age to complete this topic Insurance [employer] Care Teams Preschool Assistant Teacher Relationship Specialty Start Date End Date Kale Dumas PA [address] [place] [address] PCP - General PHYSICIAN HOG STOMACH PREPARER 06/26/23
--- OUTSIDE RECORDS SUMMARY | 2024-06-25 09:41 | XMS_ITS | Data Portability ---
Author Organization [facility] Ashwin Loja Address [address] [place] [address] Care Team Providers Care Health Care Facilities Inspector Name Role Phone KALE DUMAS Primary Care Provider DARÍO LOVE Pulp Tester Unavailable Assessment No assessment recorded. Plan of Treatment Reminders Order Date Submit Date Provider Last Modified By Organization Details Last Modified Time Details Appointments None recorded. Lab cytology report, thin prep, smear or scraping, cervical or vaginal 2023 024 Prepared [facility], [address] [facility], [facility] [address], [place], [address], 4 10:16:35 bacterial vaginosis panel, vaginal 2023 024 Prepared [facility], 102 [facility], [facility], [place], [address], 4 15:16:39 urinalysis , dipstick 2023 024 [email or web address] In-Office Order, Internal Use Only DO Not Attach Compendium DO Not Attach Compendium, Do Not Delete/merge, [id number] 4 11:03:59 culture, urine 2023 024 [facility]ared [facility], [facility], [place], [address], 4 17:09:38 noninvasiv e colorectal cancer DNA + occult blood screening, QL, stool 2023 024 [facility] (Cologuard Orders Only), [address], [address], [place], [address], 4 10:20:36 urinalysis , dipstick 2018 019 [email or web address] In-Office Order, Internal Use Only DO Not Attach Compendium DO Not Attach Compendium, Do Not Delete/merge, [id number] 9 19:37:42 Referral None recorded. Procedures None recorded. Surgeries None recorded. Imaging MAMMO, screening, bilateral 2023 024 [facility] (Radiology), [address] [place], [address], 4 09:52:21 exercise stress test 2023 024 [facility] - Radiology Scheduling, [address] [place], [address], 4 10:01:02 Medication Orders Women's 50 Plus Multivitam in 400 mcg-500 mg calcium-20 mcg tablet 2023 024 [facility]/Pharmacy #[id number], [address] [place], [address], 4 11:04:08 triamcinol one acetonide 0.1 % topical ointment 2023 024 [facility]/Pharmacy #[id number], [address] [place], [address], 4 11:19:55 Patient TargetsNo targets recorded. Patient Instructions Encounter Date Encounter Id Patient Instructions Last Modified By Organization Details Last Modified Time 07/01/2018 [id number] blood in the urine: care instructions stephanieanney Not available 07/01/2018 18:49:38 back care and preventing injuries: care instructions jnanney Not available 07/01/2018 18:49:38 go to ER jnanney Not available 2018 18:49:38 08/08/2020 [id number] body mass index: care instructions jnanney Not available 08/08/2020 10:21:28 learning about healthy weight Not available 08/08/2020 10:21:27 07/03/2023 [id number] A healthy lifestyle: care instructions Not available 07/03/2023 15:46:26 08/21/2023 [id number] A healthy lifestyle: care instructions Not available 08/21/2023 16:12:55 10/27/2023 [id number] A healthy lifestyle: care instructions [email or web address] Not available 10/27/2023 11:03:57 Your women's health [...] does not have scents or stain sheets. [email or web address] Not available 10/27/2023 10:07:14 Reason for Referral [...] 06/29/2018 urina lysis , dipst ick Specific [place]vel[place] 1.005 Not Available In-Off ice Order Internal [...] 06/29/2018 urina lysis , dipst ick Color Barlow Not Available In-Office Order Internal Use Only [...] 07/02/1907/01/2018 urina lysis , dipst ick Specific [place] 1.015 Not Available In-Off ice Order Internal [...] DO Not Attach Compendium, Do Not Delete/merge, [id number] 07/01/2018 18:24:38 07/02/19 19 07/01/2018 urina lysis , dipst ick Appearance Slight ly Cloudy Not Available In-Office Order Internal Use Only DO Not Attach Compendium DO Not Attach Compendium, Do Not Delete/merge, [id number] 07/01/2018 18:24:38 07/02/19 19 07/01/2018 urina lysis , dipst ick Color Yellow Not Available In-Office Order Internal Use Only DO Not Attach Compendium DO Not Attach Compendium, Do Not Delete/merge, [id number] 07/01/2018 18:24:38 06/26/19 24 06/26/2023 Urina lysis compl ete panel - Urine color of urine STRAW COLOR (U) STRAW 06/25 12:02 PM CDT [facility] Not Available Not Available 05/31/2024 11:15:17 06/26/19 24 06/26/2023 Urina lysis compl ete panel - Urine clarity of urine CLEAR TRANS PAREN CY CLEAR 06/25 12:02 PM CDT [facility] Not Available Not Available 05/31/2024 11:15:17 06/26/19 24 06/26/2023 Urina lysis compl ete panel - Urine specific gravity of urine 1.01 low: 1high: 1.025 SPECI FIC GRAVI TY (U) 1.010 1.000 - 1.025 06/25 12:02 PM CDT [facility] Not Available Not Available 05/31/2024 11:15:17 06/26/19 24 06/26/2023 Urina lysis compl ete panel - Urine pH of urine 6.5 low: 5high: 8 U PH 6.5 5.0 - 8.0 06/25 12:02 PM CDT [facility] Not Available Not Available 05/31/2024 11:15:17 06/26/19 24 06/26/2023 Urina lysis compl ete panel - Urine leukocyte esterase [presence] in urine by test strip NEGATI VE text: negati ve LEUKO CYTES (U) NEGAT INDIRA NEGAT INDIRA 06/25 12:02 PM [facility] Not Available Not Available 05/31/2024 11:15:17 06/26/19 24 06/26/2023 Urina lysis compl ete panel - Urine nitrite [presence] in urine by test strip NEGATI VE text: negati ve NITRI BRIAN NEGAT INDIRA NEGAT INDIRA 06/25 12:02 PM [facility] Not Available Not Available 05/31/2024 11:15:17 06/26/19 24 06/26/2023 Urina lysis compl ete panel - Urine protein [presence] in urine by automated test strip NEGATI VE text: negati ve PROTE IN RANDO M (U) NEGAT INDIRA NEGAT INDIRA 06/25 12:02 PM [facility] Not Available Not Available 05/31/2024 11:15:17 06/26/19 24 06/26/2023 Urina lysis compl ete panel - Urine glucose [presence] in urine by automated test strip NEGATI VE text: negati ve GLUCO SE (U) NEGAT INDIRA NEGAT INDIRA 06/25 12:02 PM [facility] Not Available Not Available 05/31/2024 11:15:17 06/26/19 24 06/26/2023 Urina lysis compl ete panel - Urine ketones [presence] in urine by automated test strip NEGATI VE text: negati ve KETON ES (U) NEGAT INDIRA NEGAT INDIRA 06/25 12:02 PM [facility] Not Available Not Available 05/31/2024 11:15:17 06/26/19 24 06/26/2023 Urina lysis compl ete panel - Urine urobilinogen [units/volum e] in urine by test strip 0.2 text: <1.0 eu/dL UROBI LINOG EN 0.2 <1.0 EU/DL 06/25 12:02 PM [facility] Not Available Not Available 05/31/2024 11:15:17 06/26/19 24 06/26/2023 Urina lysis compl ete panel - Urine bilirubin.to crystal [presence] in urine by automated test strip NEGATI VE text: negati ve BILIR UBIN (U) NEGAT INDIRA NEGAT INDIRA 06/25 12:02 PM CDT [facility] Not Available Not Available 05/31/2024 11:15:17 06/26/19 24 06/26/2023 Urina lysis compl ete panel - Urine erythrocytes [#/volume] in urine by automated test strip TRACE text: negati ve abnormal BLOOD (U) TRACE (A) NEGAT INDIRA 06/25 12:02 PM CDT [facility] Not Available Not Available 05/31/2024 11:15:17 06/26/19 24 06/26/2023 Urina lysis compl ete panel - Urine leukocytes [#/area] in urine sediment by microscopy high power field NONE SEEN text: 0 - 5 /hpf abnormal WBC/H PF NONE SEEN (A) 0 - 5 /HPF 06/25 12:02 PM T [facility] Not [...] 145 MMOL/ L 06/25 11:41 AM CDT [facility] Not Available Not Available 05/31/2024 11:15:17 06/26/19 24 06/26/2023 Compr ehens indira metab olic 1999 panel - Serum or Plasm a potassium [moles/volum e] in serum or plasma 4.1 text: 3.5 - 5.1 mmol/L POTAS SIUM S/P/B 4.1 3.5 - 5.1 MMOL/ L 06/25 11:[address] [facility] Not Available Not Available 05/31/2024 11:15:17 06/26/19 24 06/26/2023 Compr ehens indira metab olic 2000 panel - Serum or Plasm a chloride [moles/volum e] in serum or plasma 102 text: 98 - 107 mmol/L CHLOR MOISES S/P/B 102 98 - 107 MMOL/ L 06/25 11:41 AM [facility] Not Available Not Available 05/31/2024 11:15:17 06/26/19 24 06/26/2023 Compr ehens indira metab olic 1999 panel - Serum or Plasm a carbon dioxide, total [moles/volum e] in serum or plasma 26.4 text: 21.0 - 32.0 mmol/L CO2 26.4 21.0 - 32.0 MMOL/ L 06/25 11:41 AM [facility] Not Available Not Available 05/31/2024 11:15:17 06/26/19 24 06/26/2023 Compr ehens indira metab olic 1999 panel - Serum or Plasm a glucose [mass/volume ] in serum or plasma 89 text: 70 - 99 mg/dL GLUCO SE 89 70 - 99 MG/DL 06/25 11:[address] [facility] Not Available Not Available 05/31/2024 11:15:17 06/26/19 24 06/26/2023 Compr ehens indira metab olic 1999 panel - Serum or Plasm a urea nitrogen [mass/volume ] in serum or plasma 17 text: 6 - 24 mg/dL BUN 17 6 - 24 MG/DL 06/25 11:41 AM [facility] Not Available Not Available 05/31/2024 11:15:17 06/26/19 24 06/26/2023 Compr ehens indira metab olic 2000 panel - Serum or Plasm a creatinine [mass/volume ] in serum or plasma 0.85 text: 0.55 - 1.02 mg/dL CREAT ININE S/P/B 0.85 0.55 - 1.02 MG/DL 06/25 11:41 AM CDT [facility] Not Available Not Available 05/31/2024 11:15:17 06/26/19 24 06/26/2023 Compr ehens indira metab olic 1999 panel - Serum or Plasm a calcium [mass/volume ] in serum or plasma 8.7 text: 8.4 - 10.5 mg/dL CALCI UM S/P/B 8.7 8.4 - 10.5 MG/DL 06/25 11:41 AM CDT [facility] Not Available Not Available 05/31/2024 11:15:17 06/26/19 24 06/26/2023 Compr ehens indira metab olic 1999 panel - Serum or Plasm a bilirubin.to crystal [mass/volume ] in serum or plasma 0.3 text: 0.2 - 1.0 mg/dL BILIR UBIN TOTAL S/P/B 0.3 0.2 - 1.0 MG/DL 06/25 11:41 AM CDT [facility] Not Available Not Available 05/31/2024 11:15:17 06/26/19 24 06/26/2023 Compr ehens indira metab olic 2000 panel - Serum or Plasm a alkaline phosphatase [enzymatic activity/vol ume] in serum or plasma 65 U/L low: 50U/Lh igh: 130U/L ALKAL INE PHOSP HATAS E S/P/B 65 50 - 130 U/L 06/25 11:41 AM CDT [facility] Not Available Not Available 05/31/2024 11:15:17 06/26/19 24 06/26/2023 Compr ehens indira metab olic 2000 panel - Serum or Plasm a aspartate aminotransfe rase [enzymatic activity/vol ume] in serum or plasma 20 U/L low: 15U/Lh igh: 37U/L AST 20 15 - 37 U/L 06/25 11:41 AM CDT [facility] Not Available Not Available 05/31/2024 11:15:17 06/26/19 24 06/26/2023 Compr ehens indira metab olic 1999 panel - Serum or Plasm a alanine aminotransfe rase [enzymatic activity/vol ume] in serum or plasma 28 U/L low: 14U/Lh igh: 59U/L ALT 28 14 - 59 U/L 06/25 11:41 AM [facility] Not Available Not Available 05/31/2024 11:15:17 06/26/19 24 06/26/2023 Compr ehens indira metab olic 1999 panel - Serum or Plasm a protein [mass/volume ] in serum or plasma 7.4 text: 6.4 - 8.2 g/dL TOTAL PROTE IN S/P/B 7.4 6.4 - 8.2 G/DL 06/25 11:41 AM [facility] Not Available Not Available 05/31/2024 11:15:17 06/26/19 24 06/26/2023 Compr ehens indira metab olic 1999 panel - Serum or Plasm a albumin [mass/volume ] in serum or plasma 3.8 text: 3.4 - 5.0 g/dL ALBUM IN S/P/B 3.8 3.4 - 5.0 G/DL 06/25 11:41 AM [facility] Not Available Not Available 05/31/2024 11:15:17 06/26/19 24 06/26/2023 Compr ehens indira metab olic 1999 panel - Serum or Plasm a anion gap in serum or plasma by calculation 11.6 text: 5.0 - 15.0 mmol/L ANION GAP 11.6 5.0 - 15.0 MMOL/ L 06/25 11:41 AM [facility] Not Available Not Available 05/31/2024 11:15:17 06/26/19 24 06/26/2023 Compr ehens indira metab olic 2000 panel - Serum or Plasm a osmolality of serum or plasma by calculated by sum of electrolytes 291 text: mOsm/k g OSMOL ALITY (CALC ) 291 MOSM/ KG 06/25 11:41 AM [facility] Not Available Not Available 05/31/2024 11:15:17 06/26/19 24 06/26/2023 Compr ehens indira metab olic 2000 panel - Serum or Plasm a glomerular filtration rate [volume rate/area] in serum, plasma or blood by creatinine-b ased formula (CKD-epi 2020)/1.73 sq M 78 text: >89 mL/min /1.73 M2 low GFR ESTIM ATE 78 (L) >89 ML/ME N/1.7 3 M2 06/25 11:41 AM CDT [facility] Not Available Not Available 05/31/2024 11:15:17 06/26/19 24 06/26/2023 Compr ehens indira metab olic 2000 panel - Serum or Plasm a GFR notes GFR REFERE NCES: GFR NOTES GFR REFER ENCES : 06/25 11:41 AM CDT [facility] Not [...] 500 ng{FE U}/mL 06/25 11:29 AM CDT [facility] Not [...] - 36.0 G/DL 06/25 11:19 AM CDT [facility] Not Available Not Available 05/31/2024 11:15:17 06/26/19 24 06/26/2023 CBC W Auto Diffe renti al panel - Blood RDW 12.6 % low: 11.5%h igh: 14.5% RDW 12.6 11.5 - 14.5 % 06/25 11:19 AM CDT [facility] Not Available Not Available 05/31/2024 11:15:17 06/26/19 24 06/26/2023 CBC W Auto Diffe renti al panel - Blood platelets [#/volume] in blood 264 text: 150 - 350 x10'3/ uL PLT 264 150 - 350 x10'3 /uL 06/25 11:19 AM CDT [facility] Not Available Not Available 05/31/2024 11:15:17 06/26/19 24 06/26/2023 CBC W Auto Diffe renti al panel - Blood platelet [entitic mean volume] in blood 10.1 text: 7.4 - 10.4 fL MPV 10.1 7.4 - 10.4 FL 06/25 11:19 AM CDT [facility] Not [...] DIFFE RENTI AL. 06/25 11:19 AM CDT [facility] Not Available Not Available 05/31/2024 11:15:17 06/26/19 24 06/26/2023 CBC W Auto Diffe renti al panel - Blood neutrophils/ leukocytes in blood by automated count 61.4 % NEUTR OPHIL S 61.4 % 06/25 11:19 AM CDT [facility] Not Available Not Available 05/31/2024 11:15:17 [...] 7.5 % 06/25 11:19 AM CDT [facility] Not Available Not [...] % NRBC 0.0 % 06/25 11:[address] [facility] Not Available Not Available 05/31/2024 11:15:17 06/26/19 24 06/26/2023 CBC W Auto Diffe renti al panel - Blood neutrophils [#/volume] in blood 3.84 text: 1.60 - 8.30 x10'3/ uL ABS. NEUTR OPHIL S 3.84 1.60 - 8.30 x10'3 /uL 06/25 11:19 AM CDT [facility] Not Available Not Available 05/31/2024 11:15:17 06/26/19 24 06/26/2023 CBC W Auto Diffe renti al panel - Blood lymphocytes [#/volume] in blood 1.82 text: 0.80 - 4.70 x10'3/ uL ABS. LYMPH OCYTE S 1.82 0.80 - 4.70 x10'3 /uL 06/25 11:19 AM CDT [facility] Not Available Not Available 05/31/2024 11:15:17 06/26/19 24 06/26/2023 CBC W Auto Diffe renti al panel - Blood monocytes [#/volume] in blood 0.47 text: 0.00 - 1.50 x10'3/ uL ABS. MONOC YTES 0.47 0.00 - 1.50 x10'3 /uL 06/25 11:19 AM CDT [facility] Not Available Not Available 05/31/2024 11:15:17 06/26/19 24 06/26/2023 CBC W Auto Diffe renti al panel - Blood eosinophils [#/volume] in blood 0.09 text: 0.00 - 0.40 x10'3/ uL ABS. EOSIN OPHIL S 0.09 0.00 - 0.40 x10'3 /uL 06/25 11:19 AM [facility] Not Available Not Available 05/31/2024 11:15:17 06/26/19 24 06/26/2023 CBC W Auto Diffe renti al panel - Blood basophils [#/volume] in blood 0.02 text: 0.00 - 0.20 x10'3/ uL ABS. BASOP HILS 0.02 0.00 - 0.20 x10'3 /uL 06/25 11:19 AM CDT [facility] Not Available Not Available 05/31/2024 11:15:17 06/26/19 24 06/26/2023 CBC W Auto Diffe renti al panel - Blood immature granulocytes [#/volume] in blood 0.02 text: 0.00 - 0.03 x10'3/ uL ABS. IMMAT URE GRANU LOCYT ES 0.02 0.00 - 0.03 x10'3 /uL 06/25 11:19 AM CDT [facility] Not Available Not Available 05/31/2024 11:15:17 06/26/19 24 06/26/2023 CBC W Auto Diffe renti al panel - Blood nucleated erythrocytes [#/volume] in blood 0 text: 0.00 x10'3/ uL ABS. NUCLE ATED RBC'S 0.00 0.00 x10'3 /uL 06/25 11:19 AM CDT [facility] Not Available Not Available 05/31/2024 11:15:17 10/27/19 24 10/28/2023 NUSWA B BV AND SANTAIGO DA, MERCEDES atopobium vaginae LOW - 0 score Not Available [facility] ([facility]) [address] [place], [address], 10/28/2023 15:16:39 10/27/19 24 10/28/2023 NUSWA B BV AND SANTIAGO DA, MERCEDES bvab 2 LOW - 0 score Not Available [facility] ([facility]) [address] [place], [address], 10/28/2023 15:16:39 10/27/19 24 10/28/2023 NUSWA B [...] prese nce of BV. Not Available [facility] ([facility]) [address] [place], [address], 10/28/2023 15:16:39 10/27/19 24 10/28/2023 NUSWA B BV AND SANTIAGO DA, MERCEDES casi albicans, MERCEDES NEGATI VE negati ve Not Available [facility] ([facility]) [address] [place], [address], 10/28/2023 15:16:39 10/27/19 24 10/28/2023 NUSWA B BV AND SANTIAGO DA, MERCEDES casi glabrata, MERCEDES NEGATI VE negati ve Not Available [facility] ([facility]) [address] [place], [address], 10/28/2023 15:16:39 10/27/19 24 10/29/2023 URINE CULTU RE, ROUTI NE urine culture, routine FINAL REPORT Not Available [facility] ([facility]) [address] [place], [address], 10/29/2023 17:09:38 10/27/19 24 10/29/2023 URINE CULTU RE, ROUTI NE result 1 COMMEN T Mixed uroge nital kenn 25,00 0-50, 000 colon y formi ng units per mL Not Available [facility] ([facility]) [address] [place], [address], 10/29/2023 17:09:38 10/27/19 24 10/28/2023 IGP, APTIM A HPV, RFX 16/18 ,45 HPV aptima NEGATI VE negati ve This nucle ic acid ampli ficat ion test detec ts fourt een high- risk HPV types (16,1 8,31, 33,35 ,39,4 5,51, 52,56 ,58,5 9,66, 68) witho ut diffe renti ation . Not Available [facility] ([facility]) [address] [facility], [place], [address], 10/30/2023 10:16:35 10/27/19 24 10/30/2023 IGP, APTIM A HPV, RFX 16/18 ,45 diagnosis: ADOLFO Hearn NEGAT INDIRA FOR INTRA EPITH ELIAL LESIO N OR CATRACHITA PINTO . Not Available [facility] ([facility]) [address] [facility], [place], [address], 10/30/2023 10:16:35 10/27/19 24 10/30/2023 IGP, APTIM A HPV, RFX 16/18 ,45 specimen adequacy: ADOLFO T Satis facto ry for evalu ation . No endoc ervic al compo nent is ident ified . Not Available [facility] ([facility]) [address] [facility], [place], [address], 10/30/2023 10:16:35 10/27/19 24 10/30/2023 IGP, APTIM A HPV, RFX 16/18 ,45 clinician provided ICD10: ADOLFO Hearn Z01.4 19 N89.8 R35.0 Not Available [facility] ([facility]) [address] [place], [address], 10/30/2023 10:16:35 10/27/19 24 10/30/2023 IGP, APTIM A HPV, RFX 16/18 ,45 performed by: Radha Tirado (ASCP ) Not Available [facility] ([facility]) [address] [place], [address], 10/30/2023 10:16:35 10/27/19 24 10/30/2023 IGP, APTIM A HPV, RFX 16/18 ,45 . . Not Available [facility] ([facility]) [address] [place], [address], 10/30/2023 10:16:35 10/27/19 24 10/30/2023 IGP, APTIM [...] ts do occur . Not Available [facility] ([facility]) [address] [facility], [place], [address], 10/30/2023 10:16:35 10/27/19 24 10/30/2023 IGP, APTIM A HPV, RFX 16/18 ,45 test methodology: COMMEN T This liqui d based ThinP rep(R ) pap test was scree goran with the use of an image guide d syste m. Not Available [facility] ([facility]) [address] [facility], [place], [address], 10/30/2023 10:16:35 10/27/19 24 10/30/2023 IGP, APTIM A HPV, RFX 16/18 ,45 HPV genotype reflex COMMEN T Crite tess not met, HPV Genot ype not perfo rmed. Not Available [facility] ([facility]) [address] [place], [address], 10/30/2023 10:16:35 10/27/19 24 10/27/2023 urina lysis [...] 10/27/2023 urina lysis , dipst ick Specific [place] 1.010 Not Available In-Off ice Order Internal [...] DO Not Attach Compendium, Do Not Delete/merge, [id number] 10/27/2023 10:50:46 10/27/19 24 10/27/2023 urina lysis , dipst ick Glucose Negati ve Not Available In-Office Order Internal Use Only DO Not Attach Compendium DO Not Attach Compendium, Do Not Delete/merge, 10/27/2023 10:50:46 10/27/19 24 10/27/2023 urina lysis , dipst ick Appearance Clear Not Available In-Offi ce Order Internal Use Only DO Not Attach Compendium DO Not Attach Compendium, Do Not Delete/merge, [id number] 10/27/2023 10:50:46 10/27/19 24 10/27/2023 urina lysis , dipst ick Color Yellow Not Available In-Office Order Internal Use Only DO Not Attach Compendium DO Not Attach Compendium, Do Not Delete/merge, [id number] 10/27/2023 10:50:46 11/14/1911/14/2023 COLOG UARD cologuard result [...] of 10,00 0 indiv idual s at [place] ge risk for color ectal cance r [...] asymp tomat ic indiv idual s at [facility] risk for color ectal cance r. Follo [...] 112:1 016-1 030. TEST DESCR IPTIO N: [place] site algor ithmi c kate sis of [...] years or older , who are at [facility] for color ectal cance r (CRC) . Colog uard has been appro saulo for use by the [place] FDA. The perfo rmanc e of Colog uard was estab lishe d in a cross secti onal study of [facility] adult s aged 50-84 . Colog [...] study of 0 indiv idual s at [facility] risk for color ectal cance r who [...] d [facility] loc[facility] ion: www.e xactl abs.c om/re sults . Addit ional descr iptio n of the Colog uard test proce ss, warni ngs and preca ution s can be found at www.minerva mcgee.minerva om. Not Available [facility] (Cologuard Orders Only) [address], [place], [address], 11/19/2023 10:20:36 08/19/19 24 08/01/2023 exerc ise stres s test No observ ation record ed. [email or web address], [address], 08/19/2023 15:43:48 08/19/19 24 08/01/2023 exerc ise stres s test No observ ation record ed. [email or web address], [address], 08/19/2023 15:02:55 12/30/19 24 12/26/2023 MAMMO , scree mayela, bilat eral No observ ation record ed. [address], [address], 12/30/2023 16:17:05 12/30/1912/26/2023 MAMMO , scree mayela, bilat eral No observ ation record ed. [facility] (Radiology) [address] [place] [address], [id number], 12/30/2023 16:16:55 Result Notes None recorded. Problems No Known Problems Procedures Surgical History Date Name Laterality Status Provider Name and Address Organization Details Recorded Time 09/01/19 20 Date of Last Mammogram completed Ruth Goss MA [facility] - [facility] 08/08/2020 09:44:44 09/01/19 Date of Last Pap Smear completed Ruth Goss MA [facility] - [facility] 08/08/2020 09:44:50 Appendectomy completed Mary Owens RN [facility] - [facility] 01/18/2016 15:10:17 Imaging Results Imaging Date Name Status LastModified by [facility] Details LastModified Time 08/01/2023 exercise stress test completed [email or web address] [facility] [address] [place], [address], 08/19/2023 15:43:48 08/01/2023 exercise stress test completed [email or web address] [facility] [address] [place], [address], 08/19/2023 15:02:55 12/26/2023 MAMMO, screening, bilateral completed [facility] [address] [place], [address], 12/30/2023 16:17:05 12/26/2023 MAMMO, screening, bilateral completed [facility] (Radiology) [facility] [place], [address], 12/30/2023 16:16:55 Procedure Notes None recorded. Medical Equipment None Reported. Allergies Allergen ID Allergen Name Allergen Category Reaction Reaction Severity Criticality Documentation Date Start Date Code Code System Note Provider Name and Address Organization Details Recorded Time 100904 metoclopr amide Not available other severe Not [...] 97 % 70 /min Yamini Anton MA [facility] 07/01/2018 17:41:26 Date Recorded Body temperature Oxygen saturation Oxygen saturation in Arterial blood by Pulse oximetry Heart rate Body height Body mass index (BMI) Body weight Systolic blood pressure Diastolic blood pressure Provider Name and Address Organization Details Last Updated DateTime 1 97.3 [degF] 98 % 98 % 70 /min 157.48 cm 32 kg/m2 99660.6 6 g 110 mm[Hg] 70 mm[Hg] Ruth Goss MA [facility] 1 09:48:40 Date Recorded Body weight Body mass index (BMI) Body height Heart rate Oxygen saturation Oxygen saturation in Arterial blood by Pulse oximetry Systolic blood pressure Diastolic blood pressure Provider Name and Address Organization Details Last Updated DateTime 4 67458.9 6 g 34.6 kg/m2 157.48 cm 66 /min 97 % 97 % 132 mm[Hg] 76 mm[Hg] Earline Geller MA [facility] 4 15:11:45 Date Recorded Body height Body mass index (BMI) Body weight Oxygen saturation Oxygen saturation in Arterial blood by Pulse oximetry Heart rate Systolic blood pressure Diastolic blood pressure Provider Name and Address Organization Details Last Updated DateTime 4 157.48 cm 35.3 kg/m2 50696.3 3 g 97 % 97 % 77 /min 122 mm[Hg] 84 mm[Hg] Earline Geller MA [facility] 4 15:39:58 Date Recorded Body height Heart rate Body mass index (BMI) Body weight Systolic blood pressure Diastolic blood pressure Provider Name and Address Organization Details Last Updated DateTime 4 157.48 cm 74 /min 35.3 kg/m2 98006.3 3 g 108 mm[Hg] 82 mm[Hg] Earline Geller MA 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 0.5 PPD [email or web address] Information not available 01/18/2016 Do You Feel Stressed (tense, Restless, Nervous, Or Anxious, Or Unable To Sleep At Night)? [id number] Information not available 08/08/2020 Do You Use Any Illicit Or Recreational Drugs? No Information not available 08/08/2020 Has Tobacco Cessation Counseling Been Provided? No Information not available 08/08/2020 How Many Years Have You Smoked Tobacco? 10 [email or web address] Information not available 01/18/2016 Do You Or [...] Organization Details LastModified Time Father Diabetes mellitus [email or web address] Not available 2015 15:09:30 Father Hypertensive disorder [email or web address] Not available 2015 15:09:44 Mother Hypertensive disorder [email or web address] Not available 2015 15:09:44 Medical History Condition Response Coronary Artery Disease N Other N Atrial Fibrillation N High Blood Pressure N Depression N COPD N Blood Clots N Anxiety Disorder N Muscle, Joint, or Bone Problems N Acid Reflux (GERD) N Cancer N Stroke N High Cholesterol N Liver Disease N Headaches N Kidney or Bladder Problems N Thyroid Problems N GI Problems N Skin Problems N Anemia N Heart Attack (ME) N Diabetes N Seizures/Epilepsy N Asthma N Allergies N Hepatitis N Heart Failure N Osteoporosis N Gynecological History Statement/Question Response Date of [...] completed DARÍO LOVE NP Attn: Accounting,[address] [facility], [place], [address], [facility] 10/27/2023 11:36:13 COVID-19, mRNA, LNP-S, PF, 100 mcg/0.5mL dose or 50 mcg/0.25mL dose 07/11/2020 completed DARÍO LOVE NP Attn: Accounting[address] [place], [address], [facility] 10/27/2023 11:36:13 Influenza, MDCK, quadrivalent, PF 12/08/2019 completed DARÍO LOVE NP Attn: Accounting[address] [place], [address], [facility] 10/27/2023 11:36:13 Past Encounters Encounter ID Performer Location Encounter Start Date Encounter Closed Date Diagnosis/Indication Diagnosis SNOMED-CT Code Diagnosis ICD10 Code Diagnosis Note [id number] YOHANA Babcock [address] [place] [address] 01/18/2016 14:56:37 01/18/2016 16:16:34 Knee pain 71880585 M25.561 Osteoarthr itis of knee 926110412 M17.9 [id number] Kale Dumas PA-C [facility] [address] [place] [address] 02/28/2017 14:52:06 02/28/2017 16:18:23 Urinary tract infectious disease 84276973 N39.0 Dysuria 17866702 R30.0 [id number] Kale Dumas PA-C [facility] [address] [place] [address] 02/26/2018 10:39:50 02/26/2018 12:06:23 Screening for malignant neoplasm of breast 905082147 Z12.31 Screening for malignant neoplasm of colon 064414782 Z12.11 Adult heal th examination 253163187 Z00.00 Acute pharyngitis 663301 003 J02.8 [id number]OHANA Babcock [facility] [address] [place] [address] 04/08/2018 09:54:25 04/08/2018 11:33:42 Pain in right knee 7655493519 78589 M25.561 Pain in left knee 046826 5528 19904 M25.738 [id number] Babcock [facility] [address] [place] [address] 04/20/2018 16:46:51 04/20/2018 17:33:32 Osteoarthritis of knee 077450092 M17.0 [id number] Tracy Sharp MA [facility] [address] [place] [address] 06/29/2018 15:09:56 06/30/2018 11:02:33 Urinary tract infectious disease 94857574 N39.0 [id number] Kale Dumas PA-C [facility] [address] [place] [address] 07/01/2018 17:30:13 07/02/2018 15:28:57 Urinary tract infectious disease 52193041 N39.0 Microscopic hematuria 19 9008597 R31.21 Low back pain 129390359 M54.5 [id number] Kale Dumas PA-C [facility] [address] [place] [address] 08/08/2020 09:37:19 08/08/2020 12:20:57 Body mass index 30+ - obesity 635542880 Z68.32 Osteoarthr itis of right knee joint 0603124902 91202 M17.11 [id number] Kale Dumas PA-C [facility] [address] [place] [address] 07/03/2023 14:44:13 07/09/2023 13:20:04 Dyspnea on exertion 80797285 R06.09 Overweight 634689884 E66 .3 [id number] Kale Dumas PA-C [facility] [address] [place] [address] 08/21/2023 15:28:49 08/22/2023 12:35:59 Right upper quadrant pain 066891459 R10.11 Obesity 518759364 E66.8 [id number] DARÍO LOVE NP [facility] [address] [place] [address] 10/27/2023 09:38:39 10/29/2023 10:29:23 Gynecologic examination 29164182 Z01.419 Business 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 Screening mammography 24 857677 Z12.31 Unsure when last mammogram wasOrdered placed Screening for malignant neoplasm of colon 098011163 Z12.11 No HX of colon CA in familyColo guard ordered Menopause 941501292 Z78. 0 pt is post menopausal Discussed vaginal changes, moisturize rs and lubricatio nDiscussed returning to clinic with any vaginal bleedingRX sent for Multivitam in Obesity 802600004 E66.8 Increased frequency of urination 593127126 R35.0 UA is not indicative for UTItrace leukocytes Culture sent Vaginal irritation 72730 6004 N89.8 1. Vaginal swab obtained2. Discussed [...] Castro Member ID Guarantor Name 07/01/2018 1 [facility] [id number] Ke[address]ote[address] Schuleron [id number] [facility] 08/08/2020 1 [facility] [id number] [id number] [facility] 07/03/2023 1 [facility] SCIENTIST [facility] - OPEN ACCESS III (PPO) [id number] Keikoterese Schuleron [id number] Keiko Hsu 08/21/2023 1 [facility] SCIENTIST [facility] - OPEN ACCESS III (PPO) [id number] Keiko Hsu [id number] Keiko Hsu 10/27/2023 1 [facility] SCIENTIST [facility] - OPEN ACCESS III (PPO) [id number] Keiko Hsu [id number] Keiko Hsu Notes Date Note Type Note Provider Name and Address Organization Details Recorded Time 07/01/2018 text/html started cipro yesterday with urine symptoms. did drive yesterday . pain now worse. has had a kidney stone that did this before Kale Dumas PA-C Attn: Accounting, [address] [place], [address], [facility] 07/01/2018 18:50:49 08/08/2020 text/html Pt is a 60 year old female with a hx of osteoarthritis presenting to the clinic for surgery clearance. Pt states she has recently quit smoking, and has no acute complaints. She denies CP, SOB, GI Changes, or HAs. She is getting her right knee replaced on the . 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 Kale Dumas PA-C Attn: Accounting[address] [place], [address], [facility] 07/03/2023 15:47:11 08/21/2023 text/html stress test was good...the issues have resolved since then...now wonders about gallbladder.... 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 Reports menopause at age 53. Denies [...] vasectomy DARÍO LOVE NP Attn: Accounting[address] [place], [address], [facility] 10/27/2023 11:36:54 OBGyn Episode No OBEpisode recorded.
--- OUTSIDE RECORDS SUMMARY | 2024-06-25 09:41 | XMS_ITS | Referral Summary ---
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
--- OUTSIDE RECORDS SUMMARY | 2024-06-25 09:41 | XMS_ITS | Clinical Summary ---
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
--- OUTSIDE RECORDS SUMMARY | 2024-06-25 09:42 | XMS_ITS ---
Author Organization Unknown Address [address] [place] [phone] Phone Care Team Providers Care Outbound Call Center Representative Name Role Phone IVAN CHANEL LATHE OPERATOR Attending Unavailable PREMA MARSHALL Primary Unavailable Immunization [...] Code Code Sys tem Screening mammography 12/26/2023 [id number] SNOMED -CT Personal Care Team Section Performer Name Performer Role Active Date Inactive ROLANDO Reyes PCP - Primary care physician 2023-07-15 Imaging Narrative Notes [facility] 12/30/2023 14:[address] [address] RADIOLOGY REPORT Patient Number: [id number] Patient Name: KAMILLA JAIN Type: O/P MR Number: [id number] : 1960 Age: 63 Sex: F Room #: Admit Date: 12/26/23 Discharge Date 12/26/23 Ordering Physician: IVAN CHANEL NP Family Physician: PREMA THOMAS Second Physician: X-Ray Number : [id number] DIG 3D CORBIN SCREENING BILATERA [id number] COMPLETE:12/26/23 11:41 KSE [id number] (REASONS-DIG 3D CORBIN SCREENING BILATERAL: SCREENING See Scanned Image Attachment for Report Dictated By: Wenceslao Initials: Trans Date: 12/30/23 14:36 <<REPDIST>>
== END 2024-06-25 09:31 | disposition home or self-care (01) ==
LOC: CHSCARD 09:31
PROVIDERS: PCP Family Medicine; Visit Provider Family Medicine
DX: Z87.891 Personal history of nicotine dependence (principal); R94.2 Abnormal results of pulmonary function studies
CPT/HCPCS: 94060